=== PATIENT | female | born 1955 | race Caucasian/White ===

== ENCOUNTER 2017-07-04 10:09 | Outpatient (CLI) | payer MEDICARE ==
[2017-07-04 17:40] LABS: BILIRUBIN,URINE NEGATIVE (NEGATIVE); GLUCOSE, URINE (UA) NEGATIVE (NEGATIVE); KETONES,URINE (UA) NEGATIVE (NEGATIVE); LEUKOCYTE ESTERASE, URINE NEGATIVE (NEGATIVE); NITRITE,URINE NEGATIVE (NEGATIVE); OCCULT BLOOD,URINE NEGATIVE (NEGATIVE); PROTEIN,URINE 100 mg/dL (NEGATIVE); UROBILINOGEN,URINE 0.2 (NORMAL) E.U./dL (NORMAL)
[2017-07-04 17:41] LABS: BASOPHILS # (AUTO) 0.1 10^3/uL (0.0-0.1); BASOPHILS % (AUTO) 0.7 %; EOSINOPHILS # (AUTO) 0.2 10^3/uL (0.0-0.7); LYMPHOCYTES # (AUTO) 2.6 10^3/uL (1.5-3.5); LYMPHOCYTES % (AUTO) 29.5 %; MEAN CORPUSCULAR HEMOGLOBIN 31.4 pg (27.0-31.0); MEAN CORPUSCULAR HGB CONC 33.3 g/dL (32.0-36.0); MEAN CORPUSCULAR VOLUME 94.2 fL (81.0-99.0); MEAN PLATELET VOLUME 9.4 fL (7.9-10.8); MONOCYTES # (AUTO) 0.6 10^3/uL (0.0-1.0); MONOCYTES % (AUTO) 6.6 %; NEUTROPHILS # (AUTO) 5.4 10^3/uL (1.5-6.6); NEUTROPHILS % (AUTO) 61.2 %; PLT - PLATELET COUNT 284 10^3/uL (130-450); RED BLOOD COUNT 4.13 10^6/uL (4.20-5.40); RED CELL DISTRIBUTION WIDTH 13.9 % (12.0-15.0); WHITE BLOOD COUNT 8.9 x10^3/uL (4.8-10.8)
[2017-07-04 17:50] LABS: BACTERIA,URINE Few /HPF (None Seen); CLARITY,URINE CLEAR (CLEAR); RBC,URINE 0-5 /HPF (0-5); SQUAMOUS EPITHELIAL CELL,UR FEW Squamous (<= Few)
[2017-07-04 18:20] LABS: ALBUMIN 4.1 g/dL (3.2-5.5); ALBUMIN/GLOBULIN RATIO 1.1 (1.0-2.2); ALKALINE PHOSPHATASE 75 IU/L (42-121); ALT ALANINE AMINOTRANSFERASE 18 IU/L (10-60); AST ASPARTATE AMINOTRANSFERASE 26 IU/L (10-42); BILIRUBIN,TOTAL 0.3 mg/dL (0.2-1.0); BUN - BLOOD UREA NITROGEN 13 mg/dL (6-20); CALCIUM 9.3 mg/dL (8.5-10.3); CARBON DIOXIDE - CO2 24 mmol/L (21-32); CHLORIDE 99 mmol/L (101-111); CHOL/HDL RATIO 2.3 (<4.4); CHOLESTEROL 152 mg/dL; CREATININE 1.2 mg/dL (0.4-1.0); GFR - MDRD 46 (>89); GLUCOSE 90 mg/dL (70-100); HDL CHOLESTEROL 66 mg/dL; LDL CHOLESTEROL,CALCULATED 65 mg/dL; SODIUM 137 mmol/L (135-145); TOTAL PROTEIN 7.8 g/dL (6.7-8.2); VLDL CHOLESTEROL 21 mg/dL
== END 2017-07-04 10:10 | disposition home or self-care (01) ==
LOC: LAB.F 10:09
PROVIDERS: ATTEND Physician Assistant Medical
DX: Z00.00 Encounter for general adult medical examination without abnormal findings (principal); E55.9 Vitamin D deficiency, unspecified; N30.90 Cystitis, unspecified without hematuria
CPT/HCPCS: 36415; 80053; 80061; 81001; 82306; 83721; 84443; 85025; 87086

== ENCOUNTER 2018-09-11 10:43 | Outpatient (CLI) | payer MEDICARE, MEDICAID ==
[2018-09-11 17:55] LABS: BILIRUBIN,URINE NEGATIVE (NEGATIVE); GLUCOSE, URINE (UA) NEGATIVE (NEGATIVE); KETONES,URINE (UA) NEGATIVE (NEGATIVE); LEUKOCYTE ESTERASE, URINE NEGATIVE (NEGATIVE); NITRITE,URINE NEGATIVE (NEGATIVE); OCCULT BLOOD,URINE NEGATIVE (NEGATIVE); PROTEIN,URINE TRACE mg/dL (NEGATIVE); UROBILINOGEN,URINE 0.2 (NORMAL) E.U./dL (NORMAL)
[2018-09-11 18:07] LABS: BASOPHILS % (AUTO) 0.3 %; EOSINOPHILS # (AUTO) 0.2 10^3/uL (0.0-0.7); EOSINOPHILS % (AUTO) 2.1 %; HGB - HEMOGLOBIN 12.8 g/dL (12.0-16.0); LYMPHOCYTES # (AUTO) 2.5 10^3/uL (1.5-3.5); LYMPHOCYTES % (AUTO) 29.8 %; MEAN CORPUSCULAR HEMOGLOBIN 31.4 pg (27.0-31.0); MEAN CORPUSCULAR HGB CONC 32.5 g/dL (32.0-36.0); MEAN CORPUSCULAR VOLUME 96.7 fL (81.0-99.0); MEAN PLATELET VOLUME 9.4 fL (7.9-10.8); MONOCYTES # (AUTO) 0.5 10^3/uL (0.0-1.0); MONOCYTES % (AUTO) 6.5 %; NEUTROPHILS # (AUTO) 5.1 10^3/uL (1.5-6.6); NEUTROPHILS % (AUTO) 61.3 %; PLT - PLATELET COUNT 253 10^3/uL (130-450); RED BLOOD COUNT 4.09 10^6/uL (4.20-5.40); RED CELL DISTRIBUTION WIDTH 14.5 % (12.0-15.0); WHITE BLOOD COUNT 8.3 x10^3/uL (4.8-10.8)
[2018-09-11 18:08] LABS: CLARITY,URINE CLEAR (CLEAR)
[2018-09-11 18:14] LABS: ALBUMIN/GLOBULIN RATIO 1.2 (1.0-2.2); ALKALINE PHOSPHATASE 65 IU/L (42-121); ALT ALANINE AMINOTRANSFERASE 17 IU/L (10-60); AST ASPARTATE AMINOTRANSFERASE 22 IU/L (10-42); BILIRUBIN,TOTAL 0.5 mg/dL (0.2-1.0); BUN - BLOOD UREA NITROGEN 24 mg/dL (6-20); CALCIUM 9.2 mg/dL (8.5-10.3); CARBON DIOXIDE - CO2 26 mmol/L (21-32); CHLORIDE 102 mmol/L (101-111); CHOL/HDL RATIO 2.5 (<4.4); CHOLESTEROL 155 mg/dL; CREATININE 1.1 mg/dL (0.4-1.0); GFR - MDRD 50 (>89); GLUCOSE 87 mg/dL (70-100); HDL CHOLESTEROL 61 mg/dL; LDL CHOLESTEROL,CALCULATED 79 mg/dL; LDL/HDL RATIO 1.3 (<4.4); SODIUM 137 mmol/L (135-145); TOTAL PROTEIN 7.3 g/dL (6.7-8.2); VLDL CHOLESTEROL 15 mg/dL
== END 2018-09-11 10:44 | disposition home or self-care (01) ==
LOC: LAB.F 10:43
PROVIDERS: ATTEND Physician Assistant Medical
DX: I10 Essential (primary) hypertension (principal); E78.5 Hyperlipidemia, unspecified; R80.9 Proteinuria, unspecified
CPT/HCPCS: 36415; 80053; 80061; 81001; 81003; 83721; 85025; 87086

== ENCOUNTER 2018-10-01 14:06 | Outpatient (CLI) | payer MEDICARE, MEDICAID ==
--- NOTE | 2018-10-02 08:29 | DEXA Report ---
Reason: ASYMPTOMATIC MENOPAUSAL STATE Procedure Date: 10/01/2018 Accession Number: [id number] / [id number] Procedure: DEX - Dexa Spine and/or Hip CPT Code: FULL RESULT: EXAM: Dexa Spine and/or Hip DATE: 10/01/2018 2:42 PM CLINICAL HISTORY: ASYMPTOMATIC MENOPAUSAL STATE TECHNIQUE: Dual energy x-ray absorptiometry (DXA) was performed on a MYOS System. Regions measured are the AP Spine, femoral neck, and if needed forearm. COMPARISON: None. In accordance with the International Society for Clinical Densitometry (ISCD) guidelines, data from previous exams may be reanalyzed using current recommendations and techniques. This is done to allow a more accurate basis for comparison with the current study. FINDINGS: The data for the lumbar spine is as follows: BMD (g/cm/cm) T-SCORE Z-SCORE REGION L1 1.172 0.4 1.9 L2 1.263 0.5 2.0 L3 1.337 1.1 2.6 L4 1.388 1.6 3.1 TOTAL 1.303 1.0 2.5 NOTE: All evaluable vertebrae are used for classification The data for the hip is as follows: BMD (g/cm/cm) T-SCORE Z-SCORE REGION Neck 0.919 -0.9 0.6 TOTAL 0.985 -0.2 0.9 NOTE: The femoral neck or total proximal femur, whichever is lowest, is used for classification. IMPRESSION: THE WHO CLASSIFICATION BASED ON THE INTERNATIONAL REFERENCE STANDARD IS NORMAL. THE FRACTURE RISK IS NOT INCREASED. RECOMMENDATION: Patients with diagnosis of osteoporosis or osteopenia should have regular bone mineral density assessment. For those eligible for Medicare, routine testing is allowed once every 2 years. Testing frequency can be increased for patients who have rapidly progressing disease or for those who are receiving medical therapy to restore bone mass. COMMENT: World Health Organization (WHO) definitions for osteoporosis and osteopenia: NORMAL BMD: T-score at -1.0 or higher, fracture risk is low OSTEOPENIA BMD: T-score between -1.0 and -2.5, fracture risk is increased. OSTEOPOROSIS BMD: T-score at -2.5 or lower, fracture risk is high. National Osteoporosis Foundation recommends: 1. Obtain adequate dietary calcium (at least 1200 mg per day) and vitamin D (400-800 international units per day). 2. Participate, as appropriate, in regular weightbearing and muscle-strengthening exercise. 3. Avoid tobacco use and reduce alcohol and caffeine intake. 4. For more detailed information see the website at www.NOF.org.
== END 2018-10-01 14:07 | disposition home or self-care (01) ==
LOC: DI 14:06
PROVIDERS: ATTEND Registered Nurse
DX: Z78.0 Asymptomatic menopausal state (principal)
CPT/HCPCS: 77080

== ENCOUNTER 2019-12-12 08:09 | Outpatient (CLI) | payer MEDICARE, MEDICAID ==
[2019-12-12 15:21] LABS: BILIRUBIN,URINE NEGATIVE (NEGATIVE); GLUCOSE, URINE (UA) NEGATIVE (NEGATIVE); KETONES,URINE (UA) NEGATIVE (NEGATIVE); LEUKOCYTE ESTERASE, URINE TRACE (NEGATIVE); NITRITE,URINE NEGATIVE (NEGATIVE); OCCULT BLOOD,URINE NEGATIVE (NEGATIVE); PROTEIN,URINE NEGATIVE (NEGATIVE); UROBILINOGEN,URINE 0.2 (NORMAL) E.U./dL (NORMAL)
[2019-12-12 15:23] LABS: CLARITY,URINE CLEAR (CLEAR)
[2019-12-12 15:26] LABS: BASOPHILS % (AUTO) 0.5 %; EOSINOPHILS # (AUTO) 0.2 10^3/uL (0.0-0.7); EOSINOPHILS % (AUTO) 2.7 %; HGB - HEMOGLOBIN 11.4 g/dL (12.0-16.0); LYMPHOCYTES # (AUTO) 2.5 10^3/uL (1.5-3.5); LYMPHOCYTES % (AUTO) 32.5 %; MEAN CORPUSCULAR HEMOGLOBIN 30.6 pg (27.0-31.0); MEAN CORPUSCULAR HGB CONC 32.1 g/dL (32.0-36.0); MEAN CORPUSCULAR VOLUME 95.2 fL (81.0-99.0); MEAN PLATELET VOLUME 10.9 fL (7.9-10.8); MONOCYTES # (AUTO) 0.7 10^3/uL (0.0-1.0); MONOCYTES % (AUTO) 8.7 %; NEUTROPHILS # (AUTO) 4.3 10^3/uL (1.5-6.6); NEUTROPHILS % (AUTO) 55.2 %; PLT - PLATELET COUNT 264 10^3/uL (130-450); RED BLOOD COUNT 3.73 10^6/uL (4.20-5.40); RED CELL DISTRIBUTION WIDTH 13.2 % (12.0-15.0); WHITE BLOOD COUNT 7.7 x10^3/uL (4.8-10.8)
[2019-12-12 15:46] LABS: BACTERIA,URINE Few /HPF (None Seen); RBC,URINE 0-5 /HPF (0-5); SQUAMOUS EPITHELIAL CELL,UR MOD Squamous (<= Few)
[2019-12-12 15:50] LABS: ALBUMIN 3.9 g/dL (3.2-5.5); ALBUMIN/GLOBULIN RATIO 1.3 (1.0-2.2); ALKALINE PHOSPHATASE 59 IU/L (42-121); ALT ALANINE AMINOTRANSFERASE 14 IU/L (10-60); AST ASPARTATE AMINOTRANSFERASE 19 IU/L (10-42); BILIRUBIN,TOTAL 0.8 mg/dL (0.2-1.0); BUN - BLOOD UREA NITROGEN 17 mg/dL (6-20); CALCIUM 8.9 mg/dL (8.5-10.3); CARBON DIOXIDE - CO2 27 mmol/L (21-32); CHLORIDE 100 mmol/L (101-111); CHOL/HDL RATIO 2.7 (<4.4); CHOLESTEROL 147 mg/dL; CREATININE 1.4 mg/dL (0.4-1.0); GLUCOSE 84 mg/dL (70-100); HDL CHOLESTEROL 55 mg/dL; LDL CHOLESTEROL,CALCULATED 63 mg/dL; LDL/HDL RATIO 1.1 (<4.4); SODIUM 135 mmol/L (135-145); TOTAL PROTEIN 6.9 g/dL (6.7-8.2); VLDL CHOLESTEROL 29 mg/dL
== END 2019-12-12 08:10 | disposition home or self-care (01) ==
LOC: LAB.S 08:09
PROVIDERS: ATTEND Registered Nurse
DX: F17.200 Nicotine dependence, unspecified, uncomplicated (principal); I10 Essential (primary) hypertension; E78.5 Hyperlipidemia, unspecified
CPT/HCPCS: 36415; 80053; 80061; 81001; 83721; 84443; 85025; 87086

== ENCOUNTER 2020-01-05 17:35 | Outpatient (CLI) | payer MEDICARE, MEDICAID | END 2020-01-05 23:59 | disposition home or self-care (01) | LOC: LAB.S 17:35 | PROVIDERS: ATTEND Physician Assistant | DX: R10.9 Unspecified abdominal pain (principal); Z87.440 Personal history of urinary (tract) infections | CPT/HCPCS: 87086 ==

== ENCOUNTER 2020-01-29 08:48 | Outpatient (CLI) | payer MEDICARE, MEDICAID ==
[2020-01-29 15:49] LABS: CREATININE,URINE 52.5 mg/dL; PROTEIN/CREATININE RATIO,URINE 0.6 (<=0.2)
== END 2020-01-29 08:49 | disposition home or self-care (01) ==
LOC: LAB.S 08:48
PROVIDERS: ATTEND Internal Medicine Nephrology
DX: D70.9 Neutropenia, unspecified (principal); D63.1 Anemia in chronic kidney disease; R80.9 Proteinuria, unspecified
CPT/HCPCS: 36415; 80053; 82570; 84156; 85025

== ENCOUNTER 2020-01-30 15:51 | Outpatient (CLI) | payer MEDICARE, MEDICAID ==
[2020-01-30 19:48] LABS: HGB - HEMOGLOBIN 11.3 g/dL (12.0-16.0); MEAN CORPUSCULAR HEMOGLOBIN 30.1 pg (27.0-31.0); MEAN CORPUSCULAR HGB CONC 31.5 g/dL (32.0-36.0); MEAN CORPUSCULAR VOLUME 95.7 fL (81.0-99.0); MEAN PLATELET VOLUME 11.3 fL (7.9-10.8); RED BLOOD COUNT 3.75 10^6/uL (4.20-5.40)
== END 2020-01-30 15:52 | disposition home or self-care (01) ==
LOC: LAB.S 15:51
PROVIDERS: ATTEND Internal Medicine Nephrology
DX: D70.9 Neutropenia, unspecified (principal); D63.1 Anemia in chronic kidney disease; R80.9 Proteinuria, unspecified
CPT/HCPCS: 85027

== ENCOUNTER 2020-07-23 14:50 | Outpatient (CLI) | payer MEDICARE, MEDICAID | END 2020-07-23 14:51 | disposition short-term general hospital (02) | LOC: EMS 14:50 | DX: R07.9 Chest pain, unspecified (principal); R06.02 Shortness of breath; R11.2 Nausea with vomiting, unspecified | CPT/HCPCS: A0425; A0427 ==

== ENCOUNTER 2020-12-16 08:00 | Outpatient (CLI) | payer MEDICAID, MEDICARE ==
[2020-12-16 20:01] LABS: BILIRUBIN,URINE NEGATIVE (NEGATIVE); GLUCOSE, URINE (UA) NEGATIVE (NEGATIVE); KETONES,URINE (UA) TRACE mg/dL (NEGATIVE); LEUKOCYTE ESTERASE, URINE NEGATIVE (NEGATIVE); NITRITE,URINE NEGATIVE (NEGATIVE); OCCULT BLOOD,URINE SMALL (NEGATIVE); PH,URINE 6.5 PH (5.0-7.5); PROTEIN,URINE >=300 mg/dL (NEGATIVE); UROBILINOGEN,URINE 0.2 (NORMAL) E.U./dL (NORMAL)
[2020-12-16 20:09] LABS: BACTERIA,URINE Rare /HPF (None Seen); CLARITY,URINE CLEAR (CLEAR); RBC,URINE 0-5 /HPF (0-5); SQUAMOUS EPITHELIAL CELL,UR MOD Squamous (<= Few); WBC,URINE 0-3 /HPF (0-5)
== END 2020-12-16 23:59 | disposition home or self-care (01) ==
LOC: LAB.S 08:00
PROVIDERS: ATTEND Emergency Medicine
DX: R30.0 Dysuria (principal)
CPT/HCPCS: 81001; 87086

== ENCOUNTER 2021-02-25 19:05 | Outpatient (CLI) | payer MEDICARE | END 2021-02-25 19:06 | disposition short-term general hospital (02) | LOC: EMS 19:05 | DX: I48.91 Unspecified atrial fibrillation (principal); R79.81 Abnormal blood-gas level | CPT/HCPCS: A0425; A0427 ==

== ENCOUNTER 2021-05-08 09:20 | Outpatient (CLI) | payer MEDICARE | END 2021-05-08 09:21 | disposition short-term general hospital (02) | LOC: EMS 09:20 | DX: R07.89 Other chest pain (principal); R06.02 Shortness of breath; M79.602 Pain in left arm | CPT/HCPCS: A0425; A0427 ==

== ENCOUNTER 2021-10-12 10:33 | Outpatient (CLI) | payer MEDICARE | END 2021-10-12 10:34 | disposition home or self-care (01) | LOC: LAB.S 10:33 | PROVIDERS: ATTEND Ophthalmology | DX: Z01.812 Encounter for preprocedural laboratory examination (principal); H25.812 Combined forms of age-related cataract, left eye; Z20.822 Contact with and (suspected) exposure to COVID-19 | CPT/HCPCS: 81025 ==

== ENCOUNTER 2021-10-13 08:20 | Day surgery (SDC) | payer MEDICARE ==
[~2021-10-13 08:20] MED LIST: BRIMONIDINE 0.2% OPHTH DROPS 5 ML ONE; BSS/LIDOCAINE/EPINEPHRINE 1 ML VIAL ONE; CYCLOPENTOLATE 1% OPHTH DROPS 2 ML ONE; EPINEPHrine 1 MG/ML AMP ONE; KETOROLAC 0.45% OPHTH DROPS ONE; PHENYLEPHRINE 2.5% OPHTH 2 ML DROPS ONE; PROPARACAINE 0.5% OPHTH DROPS 15 ML ONE; TIMOLOL 0.5% OPHTH DROPS ONE; TRIAMCIN/MOXIFLOX OPHTHALMIC 0.6 ML VIAL IO ONE
--- NOTE | 2021-10-13 08:53 | ANESTHESIA ---
Pre-Anesthesia VS, & Labs - Diagnosis left senile cataract - Procedure left cataract extraction with intraocular lens implant Vital Signs: Temp Pulse Resp BP Pulse Ox 36.6 C 96 16 100 10/13/21 08:30 10/13/21 08:30 10/13/21 08:30 10/13/21 08:30 Height: 5 ft 3.5 in Weight (kg): 63.5 kg Body Mass Index: 24.4 BMI Classification: Healthy weight - NPO >8 hours - Is Patient ?: No Home Medications and Allergies Home Medications: Ambulatory Orders Amiodarone [Pacerone] 200 mg PO DAILY 10/06/21 Cholecalciferol (Vitamin D3) [Vitamin D3] 1,000 unit PO DAILY 10/06/21 Cyanocobalamin (Vitamin B-12) [Vitamin B-12] 1,000 mcg PO DAILY 10/06/21 Famotidine [Pepcid] 20 mg PO BID 10/06/21 Ferrous Gluconate 240 mg PO DAILY 10/06/21 Rosuvastatin Calcium [Crestor] 40 mg PO DAILY 10/06/21 Amlodipine Besylate 7.5 mg PO DAILY 05/03/15 Aspirin 81 mg PO DAILY 05/03/15 Clopidogrel [Plavix] 75 mg PO DAILY 05/03/15 Metoprolol Succinate 50 mg PO DAILY 05/03/15 Amiodarone [Pacerone] 200 mg PO DAILY 10/06/21 Cholecalciferol (Vitamin D3) [Vitamin D3] 1,000 unit PO DAILY 10/06/21 Cyanocobalamin (Vitamin B-12) [Vitamin B-12] 1,000 mcg PO DAILY 10/06/21 Famotidine [Pepcid] 20 mg PO BID 10/06/21 Ferrous Gluconate 240 mg PO DAILY 10/06/21 Rosuvastatin Calcium [Crestor] 40 mg PO DAILY 10/06/21 Allergies/Adverse Reactions: Allergies Allergy/AdvReac Type Severity Reaction Status Date / Time atropine Allergy Unknown Verified 05/03/15 11:44 clindamycin Allergy Unknown Verified 05/03/15 11:44 codeine Allergy Rash Verified 10/06/21 15:37 diphenoxylate Allergy Unknown Verified 05/03/15 11:44 nitrofurantoin Allergy Unknown Verified 05/03/15 11:44 Penicillins Allergy Unknown Verified 12/07/15 11:44 propoxyphene Allergy Unknown Verified 05/03/15 11:44 Sulfa (Sulfonamide Allergy Unknown Verified 05/03/15 11:44 Antibiotics) vancomycin Allergy Unknown Verified 05/03/15 11:44 Anes History & Medical History - Anesthetic History Anesthesia Complications: reports: No previous complications - Medical History Cardiovascular: reports: Hypertension, High cholesterol, Atrial fibrillation Pulmonary: reports: None Gastrointestinal: reports: GERD Urinary: reports: Chronic bladder infection, Other Musculoskeletal: reports: None Endocrine/Autoimmune: reports: None Skin: reports: None Smoking Status: Current every day smoker - Surgical History Cardiothoracic: Gynecologic: reports: Hysterectomy Orthopedic: reports: Carpal Tunnel surgery, Other Exam General: Alert, Oriented x3 Dental: WNL Neck Mobility: Normal Mallampati classification: II Thyromental Distance: greater than 6 cm Respiratory: Lungs clear Cardiovascular: Regular rate Plan Anesthesia Type: MAC Consent for Procedure(s) Verified and Reviewed: Yes Code Status: Attempt Resuscitation ASA classification: 3-Severe systemic disease Is this case an emergency?: No
[2021-10-13] MEDS ORDERED: MIDAZOLAM 2 MG/2 ML VIAL ONE (09:01)
[2021-10-13] MEDS ORDERED: LACTATED RINGERS 1,000 ML IV ONE ×2 (09:15→10:15)
[2021-10-13] MEDS ORDERED: EPINEPHrine 1 MG/ML AMP IR ONE (10:04)
[2021-10-13] MEDS ORDERED: BRIMONIDINE 0.2% OPHTH DROPS 5 ML OPTH ONE (10:04)
[2021-10-13] MEDS ORDERED: BSS/LIDOCAINE/EPINEPHRINE 1 ML SYRINGE IO ONE (10:05)
[2021-10-13] MEDS ORDERED: TRIAMCIN/MOXIFLOX OPHTHALMIC 0.6 ML VIAL IO ONE (10:05)
[2021-10-13] MEDS ORDERED: TIMOLOL 0.5% OPHTH DROPS OPTH ONE (10:05)
[2021-10-13] MEDS ORDERED: VANCOMYCIN OPHTHALMI 8MG/0.8ML 8 MG/0.8 ML SYRINGE IO ONE (10:06)
[2021-10-13] MEDS ORDERED: PROPARACAINE 0.5% OPHTH DROPS 15 ML EACHEYE ONE (10:06)
[2021-10-13] MEDS ORDERED: fentaNYL 100 MCG/2 ML VIAL ONE (10:08)
--- NOTE | 2021-10-13 10:21 | OPERATIVE REPORT ---
Operative Report - Other Other Information/Narrative: Date of Surgery: 10/13/21 Preop Dx: Visually significant cataract left eye. This was the first cataract surgery. Postop Dx: Same Procedure: Phacoemulsification with posterior chamber intraocular lens implant left eye Surgeon: Dr. Dawit Enrique Anesthesia: Monitored anesthesia care Complications: None Operative Indications: This is a 66-year-old F with progressive vision loss in the left eye due to 2+ nuclear sclerotic, 1+ cortical, and 1+ posterior subcapsular cataract. Best corrected visual acuity was 20/30 with glare to 20/300 vision in the left eye. Indications for surgery were: - Overall decrease in vision - Difficulty seeing words on a computer screen - Difficulty reading - Difficulty seeing words, closed captions, or game scores on TV - Difficulty seeing street signs - Difficulty driving in low light or at night - Difficulty driving at night because of headlights from other vehicles - Difficulty with glare or bright lights in any situation The patient was consented at length concerning the risks and benefits of cataract surgery after which the patient expressed a desire to proceed with surgery. Operative Procedure: The patient was taken into OR#3 and placed under monitored anesthesia care. A surgical time-out was conducted confirming correct patient, correct procedure, and correct surgical site. The patient was given topical anesthesia and then prepped and draped in the usual sterile fashion. The eye was entered at the 6 and 3 oclock positions. Intracameral Shugarcaine was injected into the anterior chamber followed by a dispersive viscoelastic. A continuous-tear curvilinear capsulorhexis was performed. The nucleus was hydrod issected and phacoemulsified. The cortex was evacuated using automated infusion and aspiration. A cohesive viscoelastic was injected into the capsular bag and a 16.0 diopter intraocular lens was inserted into the bag. Infusion and aspiration were used to evacuate the viscoelastic materials from the eye. The wounds were hydrated and the eye inflated to physiologic pressure using balanced salt solution. Approximately 0.25ml of a mixture of triamcinolone and moxifloxacin was injected trans-sclerally into the vitreous in the inferotemporal quadrant using a 30 gauge cannula. An additional 0.55ml of a mixture of triamcinolone, moxifloxacin, and vancomycin was injected subconjunctivally in the superior quadrant for infection and inflammation prophylaxis. Wound integrity was checked with Weck-Alisa sponges. The patient was taken from the operating room in good condition and given post-op instructions.
--- NOTE | 2021-10-13 10:38 | ANESTHESIA POST OP EVALUATION ---
Anesthesia Post Eval - Post Anesthesia Eval Vitals: Last Vital Signs Temp 36.3 C L 10/13/21 10:37 Pulse 62 10/13/21 10:37 Resp 13 10/13/21 10:37 BP 116/61 10/13/21 10:37 Pulse Ox 97 10/13/21 10:37 CV Function Including HR & BP: Stable Pain Control: Satisfactory Nausea & Vomiting: Negative Mental Status: Baseline Respiratory Status: Airway Patent Hydration Status: Satisfactory Anesthesia Complications: None
[2021-10-13 10:57] VITALS: BP 115/48
== END 2021-10-13 08:21 | disposition home or self-care (01) ==
LOC: SDS 08:20
PROVIDERS: ATTEND Ophthalmology
DX: H25.812 Combined forms of age-related cataract, left eye (principal); I48.91 Unspecified atrial fibrillation; F17.200 Nicotine dependence, unspecified, uncomplicated
CPT/HCPCS: 66984; A9270; J3490; J7120; V2787

== ENCOUNTER 2021-11-09 13:53 | Outpatient (CLI) | payer MEDICARE, MEDICAID | END 2021-11-09 13:54 | disposition home or self-care (01) | LOC: LAB.S 13:53 | PROVIDERS: ATTEND Ophthalmology | DX: Z01.812 Encounter for preprocedural laboratory examination (principal); H59.022 Cataract (lens) fragments in eye following cataract surgery, left eye; Z20.822 Contact with and (suspected) exposure to COVID-19 | CPT/HCPCS: 81025 ==

== ENCOUNTER 2021-11-17 07:29 | Day surgery (SDC) | payer MEDICARE, MEDICAID ==
[~2021-11-17 07:29] MED LIST changes: -BRIMONIDINE 0.2% OPHTH DROPS 5 ML ONE; -BSS/LIDOCAINE/EPINEPHRINE 1 ML VIAL ONE; -EPINEPHrine 1 MG/ML AMP ONE; -TIMOLOL 0.5% OPHTH DROPS ONE; -TRIAMCIN/MOXIFLOX OPHTHALMIC 0.6 ML VIAL IO ONE
[2021-11-17] MEDS ORDERED: LACTATED RINGERS 1,000 ML IV ONE (07:35)
--- NOTE | 2021-11-17 08:34 | ANESTHESIA ---
Pre-Anesthesia VS, & Labs - Diagnosis right eye senile combined cataract - Procedure right eye cataract extraction with IOL implant Vital Signs: Temp Pulse Resp BP Pulse Ox 36.8 C 58 L 16 151/76 H 98 11/17/21 07:39 11/17/21 07:39 11/17/21 07:39 11/17/21 07:39 11/17/21 07:39 Height: 5 ft 3 in Weight (kg): 62.7 kg Body Mass Index: 24.5 BMI Classification: Healthy weight - NPO >8 hours - Is Patient ?: No Home Medications and Allergies Amlodipine Besylate 7.5 mg PO DAILY 05/03/15 Aspirin 81 mg PO DAILY 05/03/15 Clopidogrel [Plavix] 75 mg PO DAILY 05/03/15 Metoprolol Succinate 50 mg PO DAILY 05/03/15 Amiodarone [Pacerone] 200 mg PO DAILY 10/06/21 Cholecalciferol (Vitamin D3) [Vitamin D3] 1,000 unit PO DAILY 10/06/21 Cyanocobalamin (Vitamin B-12) [Vitamin B-12] 1,000 mcg PO DAILY 10/06/21 Famotidine [Pepcid] 20 mg PO BID 10/06/21 Rosuvastatin Calcium [Crestor] 40 mg PO DAILY 10/06/21 Allergies/Adverse Reactions: Allergies Allergy/AdvReac Type Severity Reaction Status Date / Time atropine Allergy Unknown Verified 11/10/21 09:22 clindamycin Allergy Unknown Verified 11/10/21 09:22 codeine Allergy Rash Verified 11/10/21 09:22 diphenoxylate Allergy Unknown Verified 11/10/21 09:22 nitrofurantoin Allergy Unknown Verified 11/10/21 09:22 Penicillins Allergy Unknown Verified 11/10/21 09:22 propoxyphene Allergy Unknown Verified 11/10/21 09:22 Sulfa (Sulfonamide Allergy Unknown Verified 11/10/21 09:22 Antibiotics) vancomycin Allergy Unknown Verified 11/10/21 09:22 Anes History & Medical History - Anesthetic History Anesthesia Complications: reports: No previous complications - Medical History Cardiovascular: reports: Hypertension, High cholesterol, Atrial fibrillation Pulmonary: reports: None Gastrointestinal: reports: GERD Urinary: reports: Chronic bladder infection, Other Neuro: reports: None Musculoskeletal: reports: None Endocrine/Autoimmune: reports: None Blood Disorders: reports: None Skin: reports: None Smoking Status: Current every day smoker Psychosocial: reports: No issues indicated History of Cancer?: No - Surgical History Eyes Ears Nose Throat (EENT): reports: Cataracts Cardiothoracic: Gynecologic: reports: Hysterectomy Orthopedic: reports: Carpal Tunnel surgery, Other Exam General: Alert, Oriented x3, Cooperative, No acute distress Dental: Poor dentition Mouth Openin Fingerbreadth Neck Mobility: Normal Mallampati classification: II Thyromental Distance: 4-6 cm Mental/Cognitive Status: Alert/Oriented X3, Normal for patient Plan Anesthesia Type: MAC Consent for Procedure(s) Verified and Reviewed: Yes Code Status: Attempt Resuscitation ASA classification: 2-Mild systemic disease Is this case an emergency?: No
[2021-11-17] MEDS ORDERED: MIDAZOLAM 2 MG/2 ML VIAL ONE (09:05)
[2021-11-17] MEDS ORDERED: fentaNYL 100 MCG/2 ML VIAL ONE (09:05)
[2021-11-17] MEDS ORDERED: BRIMONIDINE 0.2% OPHTH DROPS 5 ML OPTH ONE (09:28)
[2021-11-17] MEDS ORDERED: EPINEPHrine 1 MG/ML AMP IR ONE (09:28)
[2021-11-17] MEDS ORDERED: TIMOLOL 0.5% OPHTH DROPS OPTH ONE (09:28)
[2021-11-17] MEDS ORDERED: PROPARACAINE 0.5% OPHTH DROPS 15 ML EACHEYE ONE (09:29)
[2021-11-17] MEDS ORDERED: BSS/LIDOCAINE/EPINEPHRINE 1 ML SYRINGE IO ONE (09:29)
[2021-11-17] MEDS ORDERED: TRIAMCIN/MOXIFLOX OPHTHALMIC 0.6 ML VIAL IO ONE (09:29)
[2021-11-17] MEDS ORDERED: LACTATED RINGERS 700 ML IV ONE (09:40)
--- NOTE | 2021-11-17 09:50 | OPERATIVE REPORT ---
Operative Report - Other Other Information/Narrative: Date of Surgery: 11/17/21 Preop Dx: Visually significant cataract right eye. Cataract surgery was performed in the left eye on . Postop Dx: Same Procedure: Phacoemulsification with posterior chamber intraocular lens implant right eye Surgeon: Dr. Dawit Enrique Anesthesia: Monitored anesthesia care Complications: None Operative Indications: This is a 66-year-old F with progressive vision loss in the right eye due to 2+ nuclear sclerotic, 2+ cortical, 2+ pseudoexfoliatve, and trace posterior subcapsular cataract. Best corrected visual acuity was 20/30 with glare to 20/50 vision in the right eye. Indications for surgery were: - Overall decrease in vision - Difficulty seeing words on a computer screen - Difficulty reading - Difficulty seeing words, closed captions, or game scores on TV - Difficulty seeing street signs - Difficulty driving in low light or at night - Difficulty driving at night because of headlights from other vehicles - Difficulty with glare or bright lights in any situation The patient was consented at length concerning the risks and benefits of cataract surgery after which the patient expressed a desire to proceed with surgery. Operative Procedure: The patient was taken into OR#3 and placed under monitored anesthesia care. A surgical time-out was conducted confirming correct patient, correct procedure, and correct surgical site. The patient was given topical anesthesia and then prepped and draped in the usual sterile fashion. The eye was entered at the 6 and 3 oclock positions. Intracameral Shugarcaine was injected into the anterior chamber followed by a dispersive viscoelastic. A continuous-tear curvilinear capsulorhexis was performed. The nucleus was hydrodissected and phacoemulsified. The cortex was evacuated using automated infusion and aspiration. A cohesive viscoelastic was injected into the capsular bag and a 16.5 diopter intraocular lens was inserted into the bag. Infusion and aspiration were used to evacuate the viscoelastic materials from the eye. The wounds were hydrated and the eye inflated to physiologic pressure using balanced salt solution. Approximately 0.25ml of a mixture of triamcinolone and moxifloxacin was injected trans-sclerally into the vitreous in the inferotemporal quadrant using a 30 gauge cannula. An additional 0.55ml of a mixture of triamcinolone and moxifloxacin was injected subconjunctivally in the superior quadrant for infection and inflammation prophylaxis. Wound integrity was checked with Weck-Alisa sponges. The patient was taken from the operating room in good condition and given post-op instructions.
[2021-11-17 10:09] VITALS: BP 106/44
--- NOTE | 2021-11-17 14:54 | ANESTHESIA POST OP EVALUATION ---
Anesthesia Post Eval - Post Anesthesia Eval Vitals: Last Vital Signs Temp 36.8 C 11/17/21 10:08 Pulse 54 L 11/17/21 10:08 Resp 16 11/17/21 10:08 BP 106/44 L 11/17/21 10:08 Pulse Ox 98 11/17/21 10:08 CV Function Including HR & BP: Stable Pain Control: Satisfactory Nausea & Vomiting: Negative Mental Status: Baseline Respiratory Status: Airway Patent Hydration Status: Satisfactory Anesthesia Complications: None
== END 2021-11-17 07:30 | disposition home or self-care (01) ==
LOC: SDS 07:29
PROVIDERS: ATTEND Ophthalmology
DX: H25.811 Combined forms of age-related cataract, right eye (principal); I48.91 Unspecified atrial fibrillation; Z98.42 Cataract extraction status, left eye; F17.200 Nicotine dependence, unspecified, uncomplicated
CPT/HCPCS: 66984; A9270; J3490; J7120

== ENCOUNTER 2022-07-05 13:36 | Outpatient (CLI) | payer MEDICARE, MEDICAID ==
[2022-07-05 19:43] LABS: MEAN CORPUSCULAR HEMOGLOBIN 25.8 pg (27.0-31.0); MEAN CORPUSCULAR HGB CONC 29.4 g/dL (32.0-36.0); MEAN CORPUSCULAR VOLUME 87.6 fL (81.0-99.0); MEAN PLATELET VOLUME 11.6 fL (7.9-10.8); RED BLOOD COUNT 3.88 10^6/uL (4.20-5.40); RED CELL DISTRIBUTION WIDTH 17.2 % (12.0-15.0); WHITE BLOOD COUNT 9.8 x10^3/uL (4.8-10.8)
[2022-07-05 20:00] LABS: ALBUMIN 3.9 g/dL (3.2-5.5); ALBUMIN/GLOBULIN RATIO 1.1 (1.0-2.2); BILIRUBIN,TOTAL 0.6 mg/dL (0.2-1.0); CALCIUM 10.1 mg/dL (8.5-10.3); CREATININE 2.2 mg/dL (0.4-1.0); POTASSIUM 3.6 mmol/L (3.5-5.0); TOTAL PROTEIN 7.4 g/dL (6.7-8.2)
[2022-07-05 20:30] LABS: THYROID STIMULATING HORMONE 1.43 uIU/mL (0.34-5.60)
== END 2022-07-05 13:37 | disposition home or self-care (01) ==
LOC: LAB.S 13:36
DX: Z79.899 Other long term (current) drug therapy (principal)
CPT/HCPCS: 36415; 80053; 84443; 85027

== ENCOUNTER 2023-04-06 04:50 | Outpatient (CLI) | payer MEDICARE, MEDICAID | END 2023-04-06 23:59 | disposition short-term general hospital (02) | LOC: EMS 04:50 | DX: R06.02 Shortness of breath (principal); R07.89 Other chest pain; R53.1 Weakness | CPT/HCPCS: A0425; A0427 ==

== ENCOUNTER 2024-06-06 18:16 | Inpatient (IN) ==
[2024-06-06 18:31] LABS: BASOPHILS # (AUTO) 0.1 10^3/uL (0.0-0.1); BASOPHILS % (AUTO) 0.3 %; EOSINOPHILS # (AUTO) 0.2 10^3/uL (0.0-0.7); EOSINOPHILS % (AUTO) 1.1 %; HCT - HEMATOCRIT 37.4 % (37.0-47.0); HGB - HEMOGLOBIN 11.7 g/dL (12.0-16.0); LYMPHOCYTES # (AUTO) 2.1 10^3/uL (1.5-3.5); LYMPHOCYTES % (AUTO) 13.1 %; MEAN CORPUSCULAR HEMOGLOBIN 30.3 pg (27.0-31.0); MEAN CORPUSCULAR HGB CONC 31.3 g/dL (32.0-36.0); MEAN CORPUSCULAR VOLUME 96.9 fL (81.0-99.0); MEAN PLATELET VOLUME 11.1 fL (7.9-10.8); MONOCYTES # (AUTO) 0.9 10^3/uL (0.0-1.0); MONOCYTES % (AUTO) 5.8 %; NEUTROPHILS # (AUTO) 12.7 10^3/uL (1.5-6.6); NEUTROPHILS % (AUTO) 79.3 %; PLT - PLATELET COUNT 281 10^3/uL (130-450); RED BLOOD COUNT 3.86 10^6/uL (4.20-5.40); RED CELL DISTRIBUTION WIDTH 14.6 % (12.0-15.0); WHITE BLOOD COUNT 16.1 x10^3/uL (4.8-10.8)
[2024-06-06] MEDS: FUROSEMIDE 40 MG/4 ML VIAL IVP STA (18:41)
--- NOTE | 2024-06-06 18:42 | ED Physician Documentation ---
History of Present Illness Stated complaint Stated Complaint: SOA Chief complaint Chief Complaint: Resp History obtained from History obtained from: Patient and EMS History of Present Illness Pain level max: 0 Pain level now: 0 Additonal information Additional information: Patient is a 69-year-old female who presents to the emergency department complaining of increasing difficulty breathing throughout the day. States she has a history of congestive heart failure as well as history of a stroke. States she does not have any history of COPD, emphysema or other structural lung disease. Has not had any rhinorrhea, cough or congestion. She was given an inch of Nitropaste and placed on CPAP with EMS. Breathing significantly improved upon arrival to the emergency department. Meds/Allgy Home Medications Ambulatory Orders Medication Instructions Recorded Confirmed amlodipine 5 mg tablet 7.5 mg PO DAILY 05/03/15 11/17/21 aspirin 325 mg tablet 81 mg PO DAILY 05/03/15 11/17/21 clopidogrel 75 mg tablet 75 mg PO DAILY 05/03/15 11/17/21 metoprolol succinate 50 mg 50 mg PO DAILY 05/03/15 11/17/21 tablet,extended release 24 hr amiodarone 200 mg tablet 200 mg PO DAILY 10/06/21 11/17/21 cholecalciferol (vitamin D3) 25 1,000 unit PO DAILY 10/06/21 11/17/21 mcg (1,000 unit) capsule cyanocobalamin (vitamin B-12) 1,000 mcg PO DAILY 10/06/21 11/17/21 1,000 mcg capsule famotidine 20 mg tablet 20 mg PO BID 10/06/21 11/17/21 rosuvastatin 40 mg tablet (Crestor) 40 mg PO DAILY 10/06/21 11/17/21 Allergies Allergies Allergy/AdvReac Type Severity Reaction Status Date / Time atropine Allergy Unknown Verified 06/06/24 18:29 clindamycin Allergy Unknown Verified 06/06/24 18:29 codeine Allergy Rash Verified 06/06/24 18:29 diphenoxylate Allergy Unknown Verified 06/06/24 18:29 nitrofurantoin Allergy Unknown Verified 06/06/24 18:29 Penicillins Allergy Unknown Verified 06/06/24 18:29 propoxyphene Allergy Unknown Verified 06/06/24 18:29 Sulfa (Sulfonamide Allergy Unknown Verified 06/06/24 18:29 Antibiotics) vancomycin Allergy Unknown Verified 06/06/24 18:29 mushrooms Allergy Unknown Uncoded 06/06/24 18:29 [facility] Social History Social History Smoking Status: Current every day smoker How many cigarettes a day do you smoke? (20 cigarettes=1 Pk): 4 Patient requests smoking cessation consult: No Initiate information on smoking cessation: No Relationship: Do you feel safe in your home environment?: Yes Suffered physical, verbal, emotional, or financial abuse?: No History of Abuse: No Frequency: Occasional Exam Constitutional normal general appearance Mild increased work of breathing, speaking in 5-7 word sentences HENMT oropharynx normal moist mucous membranes Eyes PERRL Neck/C-Spine visual inspection normal Respiratory Diminished breath sounds bilaterally Cardiovascular normal heart rate noted and regular rhythm noted Gastrointestinal abdomen normal to inspection, abdomen soft to palpation, nontender to palpation and nondistended Genitourinary no CVA tenderness Extremities no edema Neurology speech normal Psychiatry mental status grossly normal and oriented x3 Skin skin color normal Results Vitals Vitals: Vital Signs - 24 hr 06/06/24 18:24 Temperature 35.7 C L Temperature Source Temporal Artery Scan Pulse Rate 80 Respiratory Rate 26 H Blood Pressure 178/103 H O2 Saturation 93 O2 Source Room air Pain Intensity 3 Oxygen O2 Source Room air Labs Labs: Laboratory Tests 06/06/24 18:24 WBC 16.1 H RBC 3.86 L Hgb 11.7 L Hct 37.4 MCV 96.9 MCH 30.3 MCHC 31.3 L RDW 14.6 Plt Count 281 MPV 11.1 H Neut # (Auto) 12.7 H Lymph # (Auto) 2.1 Mccreary # (Auto) 0.9 Eos # (Auto) 0.2 Baso # (Auto) 0.1 Absolute Nucleated RBC 0.00 Nucleated RBC % 0.0 Sodium 138 Potassium 5.0 H Chloride 102 Carbon Dioxide 28 Anion Gap 8.0 BUN 17 Creatinine 1.6 H Estimated GFR (MDRD) 32 L Glucose 122 H Calcium 9.9 Total Bilirubin 0.6 AST 30 ALT 16 Alkaline Phosphatase 69 B-Natriuretic Peptide 943 H Total Protein 7.7 Albumin 4.6 Globulin 3.1 Albumin/Globulin Ratio 1.5 Lipase 26 PD Medical Decision Making ED course Complexity details: reviewed results, considered differential and d/w patient ED course: 69-year-old female presents with what appears to be A CHF exacerbation. She had been given nitroglycerin topically by EMS also placed on BiPAP. BiPAP was removed and she was weaned down to oxygen 6 L nasal cannula. Given Lasix. Chest x-ray ordered. Labs ordered. Troponin is essentially normal at 17. BNP is pending at the time of signout. Chest x-ray shows potential pneumonia, patient will need to be reassessed after initial treatment and labs. Patient signed out to Dr. Bryson For repeat evaluation and final disposition. This document was made in part using voice recognition software. While efforts are made to proofread this document, sound alike and grammatical errors may occur. Discharge Plan Discharge Clinical Impression: Acute respiratory distress Prescriptions: No Action aspirin 325 MG tablet 81 mg PO DAILY metoprolol succinate 50 MG tablet extended release 24 hr 50 mg PO DAILY Patient Comments: BID clopidogrel 75 MG tablet 75 mg PO DAILY amlodipine 5 MG tablet 7.5 mg PO DAILY cyanocobalamin (vitamin B-12) 1,000 MCG capsule 1,000 mcg PO DAILY amiodarone 200 MG tablet 200 mg PO DAILY famotidine 20 MG tablet 20 mg PO BID cholecalciferol (vitamin D3) 25 MCG capsule 1,000 unit PO DAILY rosuvastatin [Crestor] 40 MG tablet 40 mg PO DAILY Print Language: [place]an Stand Alone Forms: PCP List
[2024-06-06 18:50] LABS: ALBUMIN 4.6 g/dL (3.2-5.5); ALBUMIN/GLOBULIN RATIO 1.5 (1.0-2.2); BILIRUBIN,TOTAL 0.6 mg/dL (0.2-1.0); CALCIUM 9.9 mg/dL (8.5-10.3); CREATININE 1.6 mg/dL (0.6-1.3); TOTAL PROTEIN 7.7 g/dL (6.4-8.9)
--- NOTE | 2024-06-06 19:01 | XRAY Report ---
PROCEDURE: XR Chest 1V INDICATIONS: dyspnea TECHNIQUE: One view of the chest was acquired. COMPARISON: None. FINDINGS: Surgical changes and devices: None. Lungs and pleura: Lungs are hyperexpanded suggestive COPD. There is mild increased appearance of opa city within the right base. Mediastinum: Mediastinal contours appear normal. Heart size is normal. Bones and chest wall: No suspicious bony lesions. Overlying soft tissues appear unremarkable. IMPRESSION: Mild increased right basilar opacity. This could represent dependent change versus developing pneumon ia. Reviewed by: Jo Gilbert MD on 06/06/2024 7:00 PM PST Approved by: Jo Gilbert MD on 06/06/2024 7:00 PM PST Station ID: [id number]
--- NOTE | 2024-06-06 19:28 | ED Physician Documentation ---
ED Addendum Addendum Addendum: I received signout on this patient from Dr. Del Rio. In short, this patient presents for dyspnea for 1 day. She has a history of CHF but no COPD. I reviewed her labs and imaging. Her white blood cell count is elevated. There is a questionable right-sided infiltrate. This combination does seem suspicious for pneumonia. I reevaluated her and do auscultate crackles in the right lower lobe. She is requiring 4 L of oxygen to maintain saturations above 90%. She does tell me that she was admitted to a hospital last month for pneumonia, went to rehab, and then ultimately home. She has not had fever or chills. She has not been coughing. But she has been having dyspnea at rest and on exertion. I will admit her to the hospital due to hypoxemia and pneumonia. I ordered ceftriaxone and azithromycin. Blood cultures and lactic acid added on for possible sepsis. Unfortunately, there are no beds this evening, so we will hold her overnight until the morning. There were no acute events overnight. She remained on supplemental O2 in the morning. She awaits admission to the opital after I signed out to the day Dr. Esparza. Discharge Plan Discharge Patient Disposition: 66 [facility] DC/Xfer Clinical Impression: Acute respiratory distress, Pneumonia involving right lung, Acute hypoxemic respiratory failure Prescriptions: No Action aspirin 325 MG tablet 81 mg PO DAILY metoprolol succinate 50 MG tablet extended release 24 hr 50 mg PO DAILY Patient Comments: BID clopidogrel 75 MG tablet 75 mg PO DAILY amlodipine 5 MG tablet 7.5 mg PO DAILY cyanocobalamin (vitamin B-12) 1,000 MCG capsule 1,000 mcg PO DAILY amiodarone 200 MG tablet 200 mg PO DAILY famotidine 20 MG tablet 20 mg PO BID cholecalciferol (vitamin D3) 25 MCG capsule 1,000 unit PO DAILY rosuvastatin [Crestor] 40 MG tablet 40 mg PO DAILY Print Language: Maltese EKG Complete Tracing Completed: Yes Interpretation Completed: Yes EKG rate: 77 EKG Rhythm: Sinus Rhythm EKG Comparison: Reviewed EKG Details: LBBB. No ischemic ST elevations or depressions.
[2024-06-06] MEDS ORDERED: cefTRIAXone 1 GM VIAL ONE (20:16)
[2024-06-06] MEDS: cefTRIAXone 1 GM in SODIUM CHLORIDE 0.9% MINIBAG 100 ML IV STA (20:20)
[2024-06-06 20:54] LABS: B. PARAPERTUSSIS- RESP PCR PAN NOT DETECTED; B. PERTUSSIS- RESP PCR PANEL NOT DETECTED; C. PNEUMONIAE- RESP PCR PANEL NOT DETECTED; CORONAVIRUS 229E-RESP PCR NOT DETECTED; CORONAVIRUS HKU1-RESP PCR NOT DETECTED; CORONAVIRUS NL63-RESP PCR NOT DETECTED; CORONAVIRUS OC43-RESP PCR NOT DETECTED; HUMAN METAPNEUMOVIRUS NOT DETECTED; INFLUENZA A- RESP PCR PANEL NOT DETECTED; INFLUENZA B - RESP PCR PANEL NOT DETECTED; M. PNEUMONIAE- RESP PCR PANEL NOT DETECTED; PARAINFLUENZA VIRUS 1 NOT DETECTED; PARAINFLUENZA VIRUS 2 NOT DETECTED; PARAINFLUENZA VIRUS 4 NOT DETECTED; RHINOVIRUS/ENTEROVIRUS NOT DETECTED; RSV- RESP PCR PANEL NOT DETECTED; SARS-CoV-2 -RESP PCR PANEL NOT DETECTED
[2024-06-06] MEDS: AZITHROMYCIN INJ 500 MG in SODIUM CHLORIDE 0.9% 250 ML IV STA (21:22)
[2024-06-07 05:33] LABS: BASOPHILS % (AUTO) 0.3 %; EOSINOPHILS # (AUTO) 0.1 10^3/uL (0.0-0.7); EOSINOPHILS % (AUTO) 1.2 %; HCT - HEMATOCRIT 30.8 % (37.0-47.0); HGB - HEMOGLOBIN 9.9 g/dL (12.0-16.0); LYMPHOCYTES # (AUTO) 2.5 10^3/uL (1.5-3.5); LYMPHOCYTES % (AUTO) 26.8 %; MEAN CORPUSCULAR HEMOGLOBIN 30.7 pg (27.0-31.0); MEAN CORPUSCULAR HGB CONC 32.1 g/dL (32.0-36.0); MEAN CORPUSCULAR VOLUME 95.4 fL (81.0-99.0); MEAN PLATELET VOLUME 10.8 fL (7.9-10.8); MONOCYTES # (AUTO) 0.9 10^3/uL (0.0-1.0); MONOCYTES % (AUTO) 9.8 %; NEUTROPHILS # (AUTO) 5.8 10^3/uL (1.5-6.6); NEUTROPHILS % (AUTO) 61.7 %; PLT - PLATELET COUNT 188 10^3/uL (130-450); RED BLOOD COUNT 3.23 10^6/uL (4.20-5.40); RED CELL DISTRIBUTION WIDTH 14.3 % (12.0-15.0); WHITE BLOOD COUNT 9.4 x10^3/uL (4.8-10.8)
[2024-06-07 05:45] LABS: CALCIUM 9.5 mg/dL (8.5-10.3); CREATININE 1.6 mg/dL (0.6-1.3); POTASSIUM 4.4 mmol/L (3.5-4.5)
[2024-06-07] MEDS ORDERED: ONDANSETRON 4 MG/2 ML VIAL IVP PRN ×2 (07:21→14:35)
--- NOTE | 2024-06-07 07:28 | ED Physician Documentation ---
ED Addendum Addendum Addendum: Care from the overnight emergency physician at 7 AM shift change. She has a history of stroke and CHF. Reportedly no history of COPD or emphysema but is a former smoker, she says she quit about 2 months ago. She came in last night with acute shortness of breath and hypoxemia with room air sats down to 75% or so. Chest x-ray demonstrated possible right basilar pneumonia and she had labs notable for a white count of 16,000 and an elevated BNP at 943. She was given Lasix, Rocephin and azithromycin and Nitropaste. She was seen and examined at the bedside. She says she is doing much better. She is having a headache from the Nitropaste. On examination she appears comfortable on nasal cannula, currently at 4 L. Her breath sounds were slightly diminished at the bases with bibasilar crackles, right greater than left. Labs reviewed and she does have a mild worsening of a chronic anemia, CKD with GFR of 32 which is also chronic, very mild elevation of her troponin. She is boarding for admission at this time. I do wonder if she might have a PE given the relatively unimpressive chest x-ray. I put in her home meds, will repeat a troponin and CT angiography of the chest. There are no beds currently in the hospital but hopefully later in the day there will be. CT angiography of the chest demonstrates tiny bilateral pleural effusions with atelectasis. There is no pneumonia or pulmonary embolism. Does have a Watchman in place. As such it is seeming more like her shortness of breath is probably a combination of COPD and CHF. I am ordering steroids and scheduled Lasix in addition to the meds she has been getting. At 9 AM the nurse clarified her home meds with the family and these were corrected. A bed became available on the floor and I spoke with Dr. Anders for admission at 10:27 AM. The patient and family are counseled as to the diagnosis and need for admission. This document was made in part using voice recognition software, while efforts are made to proofread this document, sound alike an grammatical errors may occur. Discharge Plan Discharge Patient Disposition: 66 [facility] DC/Xfer Clinical Impression: Acute respiratory distress, Acute hypoxemic respiratory failure, Congestive heart failure, Severe chronic obstructive pulmonary disease Prescriptions: No Action metoprolol succinate 50 MG tablet extended release 24 hr 50 mg PO DAILY Patient Comments: BID cholecalciferol (vitamin D3) 25 MCG capsule 1,000 unit PO DAILY Eliquis 2.5 mg tablet 2.5 mg PO BID levetiracetam [Keppra] 500 mg tablet 500 mg PO BID sertraline 50 mg tablet 50 mg PO DAILY loratadine [Allerclear] 10 mg tablet 10 mg PO DAILY rosuvastatin 10 mg tablet 10 mg PO DAILY meclizine 25 mg tablet 25 mg PO TID PRN (Reason: dizziness or vertigo) trazodone 50 mg tablet 25 mg PO HS Print Language: Mohawk
[2024-06-07] MEDS: ACETAMINOPHEN 500 MG TABLET PO PRN (07:34)
[2024-06-07] MEDS ORDERED: iohexoL-300 100 ML VIAL ONE (08:12)
--- NOTE | 2024-06-07 09:09 | CT Report ---
PROCEDURE: CT Angio Chest INDICATIONS: dyspnea CONTRAST: omni 300, 80 TECHNIQUE: After the administration of intravenous contrast, 2 mm axial images were acquired from the pulmonary apices to the posterior costophrenic angles during the arterial phase. In addition, 1 mm lung kernel and 5 mm soft tissue kernel reconstructions were performed. 3-dimensional coronal oblique maximum int ensity projection (MIP) reformats, 8 mm axial MIP, and 5 mm coronal and sagittal MPR reformats were t hen performed through the thorax. For radiation dose reduction, the following was used: automated exp osure control, adjustment of mA and/or kV according to patient size. COMPARISON: None. FINDINGS: Image quality: There is streak artifact seen through the level of the shoulders. Large vessels: No filling defects within the opacified pulmonary arteries, accounting for motion and contrast timing. No evidence of acute aortic syndrome or aortic aneurysm. Lungs and pleura: Trace bilateral pleural effusions are seen, with mild overlying atelectasis. No pne umothorax is seen. No suspicious pulmonary consolidation can be seen. No suspicious pulmonary nodule is seen. Mediastinum: A left atrial appendage occlusion device is seen. Heart size is normal. No pericardial e ffusion. No large vessel abnormality. No mediastinal adenopathy by size criteria. Chest wall and lower neck: Thyroid is unremarkable. No axillary or supraclavicular adenopathy by size . Bones: No aggressive osseous abnormality. There is accentuated thoracic kyphosis. Age-appropriate de generative changes are seen. Upper Abdomen: Unremarkable. IMPRESSION: No pulmonary embolus. Trace bilateral pleural effusions are seen, with mild overlying atelectasis. Additional findings: Left atrial appendage occlusion device. Reviewed by: Neo Vanegas MD on 06/07/2024 8:08 AM [facility] Approved by: Neo Vanegas MD on 06/07/2024 8:08 AM [facility] Station ID: [id number]
[2024-06-07] MEDS: AMIODARONE 200 MG TABLET PO SCH (09:32)
[2024-06-07] MEDS: ASPIRIN CHEW 81 MG TABLET PO SCH (09:32)
[2024-06-07] MEDS: CLOPIDOGREL 75 MG TABLET PO SCH (09:32)
[2024-06-07] MEDS: FAMOTIDINE 20 MG TABLET PO SCH (09:36)
[2024-06-07] MEDS: METOPROLOL SUCCINATE 50 MG TABLET PO SCH (09:36)
[2024-06-07] MEDS ORDERED: levETIRAcetam 100 MG/ML 473ML BOTTLE PO SCH (10:00)
[2024-06-07] MEDS: APIXABAN 2.5 MG TABLET PO SCH (10:07)
[2024-06-07] MEDS: SERTRALINE 50 MG TABLET PO SCH (10:07)
[2024-06-07] MEDS: methylPREDNISolone SUCCINATE 40 MG/ML VIAL IVP SCH (10:08)
[2024-06-07] MEDS: FUROSEMIDE 20 MG/2 ML VIAL IVP SCH (10:09)
[2024-06-07] MEDS ORDERED: SODIUM CHLORIDE FLUSH 0.9% 10 ML SYRINGE IVP PRN ×2 (14:35)
[2024-06-07] MEDS ORDERED: ACETAMINOPHEN 325 MG TABLET PO PRN (14:35)
[2024-06-07] MEDS ORDERED: ONDANSETRON ODT 4 MG TABLET TL PRN (14:35)
[2024-06-07] MEDS ORDERED: oxyCODONE 5 MG TABLET PO PRN (14:35)
--- NOTE | 2024-06-07 14:48 | HISTORY & PHYSICAL EXAMINATION ---
Chief Complaint <Inna Isaacs - Last Filed: 06/07/24 18:10> Chief Complaint Chief Complaint: Shortness of breath History of Present Illness <Inna Isaacs - Last Filed: 06/07/24 18:10> Admitted From Admitted From:: Emergency Room History Obtained From History obtained from: Patient and her daughter Brooke History of Present Illness HPI Comment/Other: Keiko is a tired appearing female sitting up in bed. She presents with a chief complaint of shortness of breath. She reports the shortness of breath started yesterday morning 06/06/2024 and was first intermittent but gradually worsened over the course of the day. She describes the sensation as a heaviness pressing down on both shoulders, tightness, and feeling of fear and air hunger. She denies any chest pain, pleuritic pain, squeezing, or palpitations. She reports leaning forward with her hands on her knees was helpful, while sitting upright made it worse. She was taken to the ER in an ambulance after alerting her neighbor that she was not feeling well. She still feels some shortness of breath and air hunger at present, but it is not as bad as it was before. She smoked for 30 years but quit "against her will" in March. She now uses a nicotine vape every morning and evening. She denies any marijuana use or recreational or prescription drug abuse. She reports she has a history of CKD Stage IV, CHF, atrial fibrillation, left bundle branch block, glaucoma, and hyperlipidemia. 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 She spent time in a rehabilitation facility and only returned home in the last week. She was set up with home health and had a caregiver scheduled to start with her on Sunday. She reports significant weakness in her left arm, and some weakness in her right arm and leg from her previous strokes. She also reports significant visual disturbances since her recent stroke. She sees "sparkle benavides" in the periphery of her vision, or "blades of grass". She states her vision is very blurry since the recent stroke and that she can no longer recognize words when she reads them. She has no other major concerns at this time. Meds/Allgy <Inna Isaacs - Last Filed: 06/07/24 18:10> Home Medications Ambulatory Orders Medication Instructions Recorded Confirmed metoprolol succinate 50 mg 50 mg PO DAILY 05/03/15 06/07/24 tablet,extended release 24 hr cholecalciferol (vitamin D3) 25 1,000 unit PO DAILY 10/06/21 06/07/24 mcg (1,000 unit) capsule apixaban 2.5 mg tablet (Eliquis) 2.5 mg PO BID 06/07/24 06/07/24 levetiracetam 500 mg tablet 500 mg PO BID 06/07/24 06/07/24 (Keppra) loratadine 10 mg tablet 10 mg PO DAILY 06/07/24 06/07/24 (Allerclear) meclizine 25 mg tablet 25 mg PO TID PRN dizziness or 06/07/24 06/07/24 vertigo rosuvastatin 10 mg tablet 10 mg PO DAILY 06/07/24 06/07/24 sertraline 50 mg tablet 50 mg PO DAILY 06/07/24 06/07/24 trazodone 50 mg tablet 25 mg PO HS 06/07/24 06/07/24 furosemide 20 mg tablet (Lasix) 20 mg PO DAILY #30 tabs 06/08/24 ipratropium 20 mcg-albuterol 100 1 puff inhalation QID #4 grams 06/08/24 mcg/actuation mist for inhalation (Combivent Respimat) potassium chloride 10 mEq 10 meq PO DAILY #30 tabs 06/08/24 tablet,extended release(part/cryst) (Klor-Con M) Allergies Allergies Allergy/AdvReac Type Severity Reaction Status Date / Time atropine Allergy Unknown Verified 06/06/24 18:29 clindamycin Allergy Unknown Verified 06/06/24 18:29 codeine Allergy Rash Verified 06/06/24 18:29 diphenoxylate Allergy Unknown Verified 06/06/24 18:29 nitrofurantoin Allergy Unknown Verified 06/06/24 18:29 Penicillins Allergy Unknown Verified 06/06/24 18:29 propoxyphene Allergy Unknown Verified 06/06/24 18:29 Sulfa (Sulfonamide Allergy Unknown Verified 06/06/24 18:29 Antibiotics) vancomycin Allergy Unknown Verified 06/06/24 18:29 venom-wasp AdvReac Rash Unverified 06/07/24 14:40 mushrooms Allergy Unknown Uncoded 06/06/24 18:29 PFSH <Inna Ghilarducci - Last Filed: 06/07/24 18:10> Medical History Medical History (Updated 06/08/24 @ 10:50 by Inna Isaacs) Hyperlipidemia Nausea Most days since stroke 03/2024, alleviated with Zofran Community acquired pneumonia some time in 2023, was hospitalized and went into septic shock Moderate pulmonary hypertension Moderate mitral stenosis Mild aortic stenosis History of transesophageal echocardiography (CHACHO) 07/2021 and 09/2021 with Arnold Magallon MD (for ablation eval) STEMI (ST elevation myocardial infarction) put in H for 03/2023 admit for chf but there is no record of year or a cath done. She is followed by [facility]. Patient denies hx of STEMI CHF (congestive heart failure) Nonischemic cardiomyopathy. echo 06/2020 EF 54%, mild to mod and AR and MR. echo 02/14/23 w EF 50-55%, nml byrd. LAE mild. AV calcified mild 2.7 m/s. Mean 17 mmhg. Valve area 1.1cm2. Mild to mod AR. Mild MS w mean 4.5. Mod MR. mod pulm HTN. PASP 50 mmHg. admit 04/06/23 for sob 2 days after Watchman. Treated as mild fluid overload w CPAP and lasix, and felt cause more mucous plugging. Metoprolol stopped for bradycardia and continued amiodarone. Presence of Watchman left atrial appendage closure device 04/04/23 Reflex sympathetic dystrophy, unspecified LBBB (left bundle branch block) Glaucoma Epiretinal membrane L eye, green blades of outer periphery of vison Tobacco abuse 0.3 ppd starting 1971. down to 0.25 ppd. Stopped 03/2024 Vertigo History of recurrent UTI (urinary tract infection) Osteoarthritis Mixed anxiety and depressive disorder Stroke from afib. R sided deficits then. s/p watchman~2022, on amiodarone, then ablation 04/04/23. 03/2024 another CVA put back on eliquis for hemorrhaghic or embolic CVA Atrial fibrillation ablation 04/04/2023. metoprolol stopped due to bradycardia with 04/06/2023 admit for pna Iron deficiency anemia Noted 11/2019. Hgb 11.4. EGD 05/17 with transfusion. Vascular disease carotid stenosis with L CEA Hypertension CKD (chronic kidney disease) stage 4, GFR 15-29 ml/min see Otto Orlando MD [facility]. Has proteinuria. HCTZ stopped and started on jardiane/empaglifozin instead 02/29/24. Limit water to 2 L a day. Surgical History Surgical History (Updated 06/07/24 @ 14:49 by Layla Anders MD) History of esophagogastroduodenoscopy (EGD) with biopsy 05/10/21 by Adrianna Kirby DO History of hysterectomy uterus and cervix removed Status post de Quervain release surgery History of carpal tunnel surgery H/O cataract removal with insertion of prosthetic lens R & L eye 10/2021 H/O carotid endarterectomy Family History Family History (Updated 06/07/24 @ 15:14 by Inna Isaacs) Father CAD (coronary artery disease) Heart attack Diabetes Mother CVA (cerebral vascular accident) Arthritis Son Autism Son Colon cancer Epilepsy Learning disability Daughter No problems noted. Daughter No problems noted. Sister Epilepsy Sister No problems noted. Sister No problems noted. Brother No problems noted. Social History Social History (Updated 06/07/24 @ 15:10 by Inna Isaacs) Smoking Status: Former smoker If you are a former smoker, when did you quit? (Date/Year): 03/2024 Number of Years Smoked: 30 How many cigarettes a day do you smoke? (20 cigarettes=1 Pk): 20 Second hand tobacco smoke exposure: No Do you dip or chew tobacco?: No Do you vape?: Yes Patient requests smoking cessation consult: No Initiate information on smoking cessation: No Smoking Status Details: Pt reports smoking for 30 years. Stopped in Mar or Apr 2024 d/t her stroke. Has had 2 puffs on Sunday. Pt declined smoke cessation information. Living arrangement: At home Marital Status: More Information: roomate with autism, has home health, had a caregiver scheduled to start Relationship: Level: Assisted Home Mobility Equipment: Walker Physical - Functional Details: needs help with ADLs d/t R sided weakness and L arm deficits, cant drive d/t visual deficits Do you feel safe in your home environment?: Yes Suffered physical, verbal, emotional, or financial abuse?: No History of Abuse: No ETOH Use: None Frequency: Occasional ETOH Use Details: stopped drinking 20 years ago, denies history of alcohol abuse Substance Use: denies use Substance Use Details: has smoked marijuana in the past Are you sexually active?: No Control Method: Other Sexual Practice Notes: Hysterectomy, not sexually active since in 2018 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, 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, 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, 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 Retired: Yes POLST Patient has POLST: No POLST Status: With cardiology office Review of Systems <Inna Ferny - Last Filed: 06/07/24 18:10> Constitutional Reports: Weakness (still recovering from stroke 03/2024), Changes in appetite or eating habits (decreased appetite since stroke 03/2024) and Weight loss (notes some weight loss since stroke 03/2024); Denies: Fever, Chills, Night sweats or Weight gain Eyes Reports: Blurry vision (significantly worse s/p stroke 03/2024), Change in vision (sees "big blue sparkle benavides" or "blades of grass" in periphery s/p stroke), Corrective lenses and Other (cannot interpret words she is reading since stroke 03/2024); Denies: Pain, Irritation, Eye discomfort or Eye discharge Ears, nose, mouth, and throat Reports: Difficulty swallowing (has to take smaller bites since stroke 03/2024) and Dry mouth; Denies: Hearing loss, Throat pain or Throat swelling Cardiovascular Reports: palpitations (in the past when she is in afib she can feel it ), shortness of breath with exertion and shortness of breath when lying down; Denies: chest pain or bluish discoloration of hands/feet Respiratory Reports: Shortness of breath, SOB at rest and SOB with exertion; Denies: Cough, Pleuritic pain or Pain on inspiration Gastrointestinal Reports: Nausea (3-4 years, takes Zofran), Poor appetite, Difficulty swallowing (has to take smaller bites since stroke 03/2024), Change in stool character (softer stools since stroke 03/2024) and other (foul gas); Denies: Abdominal pain, Abdominal distention, Vomiting, Diarrhea, Constipation, Melena or Blood in stool Genitourinary Reports: Nocturia (1-2x per night ); Denies: Painful urination, Urinary frequency, Blood in urine, Difficulty voiding, Urethral discharge or Genital itching Musculoskeletal Reports: Joint pain (arthritis in hands, feet, hips), Muscle weakness (r arm and leg, l arm weakness after multiple CVAs) and Other (left hand contracture and forearm atrophy ); Denies: Muscle pain, Muscle aches or Muscle cramps Integumentary/Breast Denies: Rash, Itching, Skin tenderness, Sores or Changes in skin color Neurological Reports: Pre-existing deficit (r sided weakness, left arm weakness and atrophy) and Memory problems (some trouble with recall since stroke 03/2024 ); Denies: Numbness in extremities Psychiatric Reports: Depression ( depression, history of situational depression) and Suicidal ideation (once in the past, no active ideation today); Denies: Anxiety or Homicidal ideation Endocrine Denies: Excessive urination or Polyphagia Hematologic/Lymphatic Reports: Easy bruising; Denies: Enlarged lymph nodes Allergic/Immunologic Reports: Seasonal allergies; Denies: Throat swelling <Inna Elizabethkilo - Last Filed: 06/07/24 18:10> Prior Level of Functionality: Right-sided weakness after a CVA in 2012. Left arm contracture, atrophy, and weakness after a CVA 03/2024. Lives with a roomate. Has home health come 1x per week. Was recently discharged from a rehabilitation facility and was set up to have a daily caregiver coming starting 04/09/2025. She is unable to complete activities of daily living by herself. Walks with a walker. Exam <Inna Elizabethkilo - Last Filed: 06/07/24 18:10> Exam Keiko is a tired appearing female sitting up in bed. 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 Constitutional abnormal general appearance (disheveled), no apparent distress and average body habitus HENMT normocephalic, hearing grossly normal bilaterally, external ears normal, external nose normal, oral mucous membranes normal, dentition abnormal (no upper teeth) and gingiva normal Eyes PERRL, EOMs intact bilaterally, conjunctivae normal, no scleral icterus, normal visual pro by confrontation (normal static finger wiggle test ), alignment normal, periorbital findings normal, visual acuity abnormal (wearing glasses, reported visual disturbances/blurriness) and no nystagmus Neck/C-Spine trachea midline, cervical full ROM noted, supple and thyroid normal Lymph no lymphadenopathy noted (cervical) Chest inspection of chest normal Respiratory breath sounds equal bilaterally, normal respiratory effort, clear to auscultation bilaterally, no wheezes, no rales, no retractions and no use of accessory muscles Cardiovascular normal heart rate noted, regular rhythm noted, murmur noted (systolic) (crescendo/decrescendo ) and (III/), no JVD and no edema Gastrointestinal abdomen soft to palpation, nontender to palpation, nondistended and normoactive bowel sounds Genitourinary bladder normal to palpation Back/Pelvis spine normal to inspection and no paraspinal muscle tenderness noted Extremities abnormal to inspection (contracture and atrophy of left hand/forearm), normal to palpation and no tenderness Neurology cranial nerve findings as noted: (abnormal CN II - optic), no movement abnormality noted, no sensory deficits noted, speech normal and no fasciculations noted Psychiatry mental status grossly normal, oriented x3, thought process normal, cooperative, affect normal, psychomotor activity normal and memory abnormal (some issues with recall like dates and medications) Skin skin color normal (visualized legs, arms, chest, back, face ), no rash, no lesions, no wounds, no lacerations, no jaundice, no petechiae and no mottling Sepsis Event Note (H) <Inna Isaacs - Last Filed: 06/07/24 18:10> Evaluation Current Stage of Sepsis: Resolved (resolved with IV antibiotics, IV diuretics, and O2 administration ) Possible source of Sepsis: positive Unknown Sepsis Criteria Sepsis Criteria: Recorded Temperature greater than 38.3C or Less than 36C, Recorded Respiratory Rate greater than 20 and WBC count greater than 12,000 or less than 4000 Conclusion/Plan <Inna Isaacs - Last Filed: 06/07/24 18:10> Problem List (1) Acute hypoxemic respiratory failure: Plan: - Patient is currently on 2.2 L of O2, her baseline is no supplemental O2 use - Likely secondary to acute CHF in the setting of COPD exacerbation - Respiratory virus panel negative and history not consistent with URI symptoms - Suspicion of an infectious process is low but not ruled out, will continue to trend WBCs and temperature pending blood culture results - Plan to continue oxygen administration via nasal canula as needed (2) Acute CHF: Plan: - Patient has a history of congestive heart failure with preserved ejection fraction - BNP taken 06/06/2024 was high at 943 - Based on her chest x-ray and history, it is likely she has COPD - COPD can lead to fibrosis in the small airways causing pulmonary hypertension - I suspect her CHF is secondary to pulmonary hypertension, previous STEMI, history of mitral and aortic stenosis, and hypertension - Plan to continue oxygen administration via nasal canula as needed - Plan to continue furosemide 20 mg IV BID to minimize fluid overload (3) COPD with exacerbation: Plan: - 30 year smoking history and current daily vape use - Patient is currently on 2.2 L of O2, her baseline is no supplemental O2 use - Chest X-ray noted hyperexpanded lungs suggestive of COPD with mild right basilar opacity - I suspect the patient's history of smoking, coupled with the normal aging process, has led to symptomatic COPD - This is likely exacerbated by her congestive heart failure - Plan to continue oxygen administration via nasal canula as needed - Plan to continue methylprednisolone succinate 40mg IV TID to minimize airway inflammation (4) Shortness of breath: Plan: - Patient is currently on 2.2 L of O2, her baseline is no supplemental O2 use - Chest X-ray noted hyperexpanded lungs suggestive of COPD with mild right basilar opacity - Chest/Thorax CT angiogram found trace bilateral pleural effusions with mild overlying atelectasis - I suspect her shortness of breath is in the setting of CHF and COPD - Plan to continue oxygen administration via nasal canula as needed - Plan to continue methylprednisolone succinate 40mg IV TID to minimize airway inflammation - Plan to continue furosemide 20 mg IV BID to reduce pulmonary congestion (5) SIRS (systemic inflammatory response syndrome): Plan: - WBC now in the normal range at 9.4 as opposed to 16.1 on arrival to the ER 06/06/2024 - Respiratory rate in the normal range on 2.2 L of oxygen, patient is not on oxygen at baseline - Patient has a normal temperature and pulse, blood pressure is hypertensive - I have a low suspicion of any infectious process - Plan to continue IV ceftriaxone and IV azithromycin q24h as blood culture results are pending (6) Hypertension: Plan: - Patient is currently hypertensive - Plan to continue home metoprolol succinate 50 mg PO daily (7) Atrial fibrillation: Plan: - Patient is currently asymptomatic and has a normal pulse rate - Plan to continue home metoprolol succinate 50 mg PO daily (8) CKD (chronic kidney disease) stage 4, GFR 15-29 ml/min: Plan: - Plan to continue to manage patient blood pressure with her home metoprolol succinate 50 mg PO daily - Plan to monitor kidney function with daily BMP (9) Iron deficiency anemia: Plan: - Iron deficiency anemia can contribute to shortness of breath - Plan to supplement with a one time dose of IV ferrous gluconate (10) Mixed anxiety and depressive disorder: Plan: - Patient does not report any current symptoms - Plan to continue home sertraline and trazodone (11) Nausea: Plan: - Patient reports nausea on and off since her CVA 03/2024 - IV ondansetron ordered for prn use (12) Hyperlipidemia: Plan: - Plan to continue statin therapy with available pharmacy formulary Lab Results Lab results reviewed: Yes 06/08/24 05:32 06/08/24 05:32 Other Lab Results: I have reviewed the patient's labs. Her Rbc, Hgb, Hct are low. This indicated a normocytic anemia likely in the presence of chronic kidney disease. Her creatinine is elevated at 1.6, her GFR is low at 32 which is consistent with her chronic kidney disease. She has mildly elevated troponin at 18.6. This is in the context of CHF and shortness of breath which could cause myocardial strain. Diagnostic Imaging Results Diagnostic Imaging Results: positive Final report reviewed Diagnostic Imaging Results Comments: Chest X-ray 06/06/2024: IMPRESSION: Mild increased right basilar opacity. This could represent dependent change versus developing pneumonia. Chest/Thorax CTA 06/07/2024: IMPRESSION: No pulmonary embolus. Trace bilateral pleural effusions are seen, with mild overlying atelectasis. EKG Results EKG Comparison: No prior EKG EKG Findings: Sinus rhythm Probable left atrial enlargement Left bundle branch block ST elevation secondary to IVCD <Layla Anders MD - Last Filed: 06/08/24 15:55> Problem List (1) Acute hypoxemic respiratory failure: (2) Acute CHF: (3) COPD with exacerbation: (4) Shortness of breath: (5) SIRS (systemic inflammatory response syndrome): (6) Hypertension: (7) Atrial fibrillation: (8) CKD (chronic kidney disease) stage 4, GFR 15-29 ml/min: (9) Iron deficiency anemia: (10) Mixed anxiety and depressive disorder: (11) Nausea: (12) Hyperlipidemia: Core Measures <Inna Ghilarducavani - Last Filed: 06/07/24 18:10> Anticipated LOS I expect patient to be DC'd or transferred within 96 hours.: Yes Issues Hospital Issues and Management Plan: see Conclusion/Plan DVT/VTE - Prophylaxis VTE/DVT Device ordered at admit?: No Not Ordered - Medical Reason: Not indicated VTE/DVT Prophylaxis med ordered at admit?: Yes
[2024-06-07] MEDS: SODIUM CHLORIDE FLUSH 0.9% 10 ML SYRINGE IVP SCH ×2 (15:54)
[2024-06-07] MEDS: iohexoL-300 100 ML VIAL IVP ONE (17:08)
[2024-06-07] MEDS ORDERED: FERRIC GLUCONATE 62.5 MG/5 ML VIAL IVP ONE (17:28)
[2024-06-07] MEDS: AZITHROMYCIN INJ 500 MG in SODIUM CHLORIDE 0.9% 250 ML IV SCH (19:10)
[2024-06-07] MEDS: cefTRIAXone 1 GM in SODIUM CHLORIDE 0.9% MINIBAG 100 ML IV SCH (20:55)
[2024-06-07] MEDS: levETIRAcetam 250 MG TABLET PO SCH (21:23)
[2024-06-07] MEDS: ATORVASTATIN 40 MG TABLET PO SCH (21:23)
[2024-06-07] MEDS: traZODone 50 MG TABLET PO SCH (21:24)
[2024-06-08] MEDS: PANTOPRAZOLE 40 MG TABLET PO SCH (05:25)
[2024-06-08 06:09] LABS: BASOPHILS % (AUTO) 0.1 %; HCT - HEMATOCRIT 28.9 % (37.0-47.0); HGB - HEMOGLOBIN 9.6 g/dL (12.0-16.0); LYMPHOCYTES # (AUTO) 0.9 10^3/uL (1.5-3.5); LYMPHOCYTES % (AUTO) 9.4 %; MEAN CORPUSCULAR HEMOGLOBIN 30.6 pg (27.0-31.0); MEAN CORPUSCULAR HGB CONC 33.2 g/dL (32.0-36.0); MEAN PLATELET VOLUME 11.5 fL (7.9-10.8); MONOCYTES # (AUTO) 0.3 10^3/uL (0.0-1.0); MONOCYTES % (AUTO) 2.7 %; NEUTROPHILS # (AUTO) 8.2 10^3/uL (1.5-6.6); NEUTROPHILS % (AUTO) 87.5 %; PLT - PLATELET COUNT 185 10^3/uL (130-450); RED BLOOD COUNT 3.14 10^6/uL (4.20-5.40); RED CELL DISTRIBUTION WIDTH 13.9 % (12.0-15.0); WHITE BLOOD COUNT 9.4 x10^3/uL (4.8-10.8)
[2024-06-08 06:21] LABS: CALCIUM 8.9 mg/dL (8.5-10.3); CREATININE 1.7 mg/dL (0.6-1.3); POTASSIUM 3.6 mmol/L (3.5-4.5)
[2024-06-08] MEDS ORDERED: IPRATROPIUM/ALBUTEROL 3 ML NEB INH PRN (07:54)
--- NOTE | 2024-06-08 08:12 | PROVIDER PROGRESS NOTE ---
Current Medications Current Medications Current Medications: Current Medications Generic Name Dose Route Start Last Admin Trade Name Freq PRN Reason Stop Dose Admin Acetaminophen 1,000 mg 06/07/24 07:21 06/07/24 22:23 Acetaminophen 500 Mg Tablet PO 1,000 mg Q6H PRN Administration Mild Pain Or Fever>38c(100.4f) Acetaminophen 650 mg 06/07/24 14:35 Acetaminophen 325 Mg Tablet PO Q4HR PRN Pain 1 to 4, or Fever Albuterol/Ipratropium 3 ml 06/08/24 07:54 Ipratropium/Albuterol 3 Ml Neb INH RTQID PRN Shortness of Air/Wheezing Apixaban 2.5 mg 06/07/24 10:00 06/07/24 21:24 Apixaban 2.5 Mg Tablet PO 2.5 mg BID TITA Administration Atorvastatin Calcium 40 mg 06/07/24 21:00 06/07/24 21:23 Atorvastatin 40 Mg Tablet PO 40 mg QPM TITA Administration Furosemide 20 mg 06/07/24 10:00 06/08/24 06:50 Furosemide 20 Mg/2 Ml Vial IVP 20 mg BIDDIURETIC TITA Administration Ceftriaxone Sodium 1 gm/ 100 mls @ 200 mls/hr 06/07/24 20:00 06/07/24 22:32 Sodium Chloride IV Infused Q24H TITA Infusion Azithromycin 500 mg/ Sodium 250 mls @ 250 mls/hr 06/07/24 19:00 06/07/24 21:04 Chloride IV Infused Q24H TITA Infusion Ferric Sodium Gluconate 110 mls @ 110 mls/hr 06/08/24 09:00 Complex 125 mg/ Sodium IV 06/08/24 09:59 Chloride ONCE ONE Levetiracetam 500 mg 06/07/24 21:00 06/07/24 21:23 Levetiracetam 250 Mg Tablet PO 500 mg BID TITA Administration Methylprednisolone 40 mg 06/07/24 10:00 06/08/24 06:50 Methylprednisolone Succinate 40 Mg/Ml Vial IVP 40 mg TID TITA Administration Metoprolol Succinate 50 mg 06/07/24 09:00 06/07/24 09:36 Metoprolol Succinate 50 Mg Tablet PO 50 mg DAILY TITA Administration Ondansetron HCl 4 mg 06/07/24 07:21 Ondansetron 4 Mg/2 Ml Vial IVP Q6HR PRN Nausea / Vomiting Ondansetron HCl 4 mg 06/07/24 14:35 Ondansetron Odt 4 Mg Tablet TL Q6HR PRN Nausea / Vomiting Ondansetron HCl 4 mg 06/07/24 14:35 Ondansetron 4 Mg/2 Ml Vial IVP Q6HR PRN Nausea / Vomiting Oxycodone HCl 5 mg 06/07/24 14:35 Oxycodone 5 Mg Tablet PO Q4HR PRN Pain 5 to 7 Pantoprazole Sodium 40 mg 06/08/24 07:00 06/08/24 05:25 Pantoprazole 40 Mg Tablet PO Not Given QDAC TITA Sertraline HCl 50 mg 06/07/24 10:00 06/07/24 10:07 Sertraline 50 Mg Tablet PO 50 mg DAILY TITA Administration Sodium Chloride 10 ml 06/07/24 17:00 06/08/24 00:03 Sodium Chloride Flush 0.9% 10 Ml Syringe IVP 10 ml 0100,0900,1700 TITA Administration Sodium Chloride 10 ml 06/07/24 14:35 Sodium Chloride Flush 0.9% 10 Ml Syringe IVP PRN PRN NEEDED PER PROVIDER ORDERS Sodium Chloride 10 ml 06/07/24 14:35 Sodium Chloride Flush 0.9% 10 Ml Syringe IVP PRN PRN NEEDED PER PROVIDER ORDERS Sodium Chloride 10 ml 06/07/24 17:00 06/08/24 00:03 Sodium Chloride Flush 0.9% 10 Ml Syringe IVP Not Given 0100,0900,1700 TITA Trazodone HCl 25 mg 06/07/24 21:00 06/07/24 21:24 Trazodone 50 Mg Tablet PO 25 mg QPM TITA Administration Objective Vital Signs/Intake & Output Vital Signs: Vital Signs x48h Pulse Ox 06/08/24 03:12 97 Intake & Output: Intake & Output 06/05/24 06/06/24 06/07/24 06/08/24 23:59 23:59 23:59 23:59 Intake Total 350 / 350 840 / 840 Output Total 700 / 700 250 / 250 Balance -350 / -350 590 / 590 Weight (kg) 61.2 kg 61.2 kg Lab Results 06/08/24 05:32 06/08/24 05:32 Other Labs: Lab Results x24hrs 0106/07/24 06/07/24 Range/Units 05:32 16:00 07:42 WBC 9.4 (4.8-10.8) x10^3/uL RBC 3.14 L (4.20-5.40) 10^6/uL Hgb 9.6 L (12.0-16.0) g/dL Hct 28.9 L (37.0-47.0) % MCV 92.0 (81.0-99.0) fL MCH 30.6 (27.0-31.0) pg MCHC 33.2 (32.0-36.0) g/dL RDW 13.9 (12.0-15.0) % Plt Count 185 (130-450) 10^3/uL MPV 11.5 H (7.9-10.8) fL Neut # (Auto) 8.2 H (1.5-6.6) 10^3/uL Lymph # (Auto) 0.9 L (1.5-3.5) 10^3/uL Riley # (Auto) 0.3 (0.0-1.0) 10^3/uL Eos # (Auto) 0.0 (0.0-0.7) 10^3/uL Baso # (Auto) 0.0 (0.0-0.1) 10^3/uL Absolute Nucleated RBC 0.00 x10^3/uL Nucleated RBC % 0.0 /100WBC Sodium 136 (135-145) mmol/L Potassium 3.6 (3.5-4.5) mmol/L Chloride 96 L (101-111) mmol/L Carbon Dioxide 30 (21-32) mmol/L Anion Gap 10.0 (6-13) BUN 26 H (6-20) mg/dL Creatinine 1.7 H (0.6-1.3) mg/dL Estimated GFR (MDRD) 30 L (>89) Glucose 171 H (74-104) mg/dL Calcium 8.9 (8.5-10.3) mg/dL Troponin I High Sens 18.6 H* (2.3-14.8) ng/L B-Natriuretic Peptide 730 H (5-100) pg/mL Nasal Screen MRSA (PCR) NEGATIVE (NEGATIVE) Sepsis Event Note (H) Evaluation Current Stage of Sepsis: Resolved (resolved with IV antibiotics, IV diuretics, and O2 administration ) Possible source of Sepsis: positive Unknown Sepsis Criteria Sepsis Criteria: Recorded Temperature greater than 38.3C or Less than 36C, Recorded Respiratory Rate greater than 20 and WBC count greater than 12,000 or less than 4000 Assessment/Plan Problem List (1) Acute hypoxemic respiratory failure: Impression: - Likely secondary to acute CHF in the setting of COPD exacerbation - Respiratory virus panel negative and history not consistent with URI symptoms - WBCs remain within normal limits, decreasing likelihood of an infectious process - Still awaiting blood culture results - Patient O2 is at 95% on room air at rest, she is back to baseline - Plan to continue oxygen administration via nasal canula as needed - O2 desaturation test ordered - Respiratory therapy ordered to trial albuterol nebulizer with patient - If patient responds well to nebulizer, we will send her home with an albuterol MDI (2) Acute CHF: Impression: - Patient has a history of congestive heart failure with preserved ejection fraction - Based on her chest x-ray and history, it is likely she has COPD - COPD can lead to fibrosis in the small airways causing pulmonary hypertension - I suspect her CHF is secondary to pulmonary hypertension, previous STEMI, history of mitral and aortic stenosis, and hypertension - BNP decreased from 943 on 06/06/2024 to 730 today - Patient O2 is at 95% on room air at rest, she is back to baseline - Plan to continue oxygen administration via nasal canula as needed - O2 desaturation test ordered - Plan to continue furosemide 20 mg IV BID to minimize fluid overload (3) COPD with exacerbation: Impression: - 30 year smoking history and current daily vape use - Chest X-ray noted hyperexpanded lungs suggestive of COPD with mild right basilar opacity - I suspect the patient's history of smoking, coupled with the normal aging process, has led to symptomatic COPD - This is likely exacerbated by her congestive heart failure - Patient O2 is at 95% on room air at rest, she is back to baseline - Plan to continue oxygen administration via nasal canula as needed - O2 desaturation test ordered - Plan to continue methylprednisolone succinate 40mg IV TID to minimize airway inflammation - Respiratory therapy ordered to trial albuterol nebulizer with patient - If patient responds well to nebulizer, we will send her home with an albuterol MDI (4) Shortness of breath: Impression: - Chest X-ray noted hyperexpanded lungs suggestive of COPD with mild right basilar opacity - Chest/Thorax CT angiogram found trace bilateral pleural effusions with mild overlying atelectasis - I suspect her shortness of breath is in the setting of CHF and COPD - Patient O2 is at 95% on room air at rest, she is back to baseline - Plan to continue oxygen administration via nasal canula as needed - O2 desaturation test ordered - Plan to continue methylprednisolone succinate 40mg IV TID to minimize airway inflammation - Plan to continue furosemide 20 mg IV BID to reduce pulmonary congestion (5) SIRS (systemic inflammatory response syndrome): Impression: - WBC remains within normal limits - Respiratory rate in the normal range without supplemental oxygen, patient is not on oxygen at baseline - Patient has a normal temperature and pulse, blood pressure is hypertensive - I have a low suspicion of any infectious process - Plan to continue IV ceftriaxone and IV azithromycin q24h as blood culture results are pending (6) Weakness: Impression: - Patient reports she feels weak and dizzy during activity, this concerns her when discussing discharge - She is worried she is regressing after just finishing rehabilitation from a stroke 03/2024 - PT ordered to assess patient strength and stability prior to discharge (7) Hypertension: Impression: - Patient is currently hypertensive - Plan to continue home metoprolol succinate 50 mg PO daily (8) Atrial fibrillation: Impression: - Patient is (?) asymptomatic and has a normal pulse rate - Plan to continue home metoprolol succinate 50 mg PO daily (9) CKD (chronic kidney disease) stage 4, GFR 15-29 ml/min: Impression: - BUN increased from 20 yesterday to 26 today - Creatinine increased from 1.6 yesterday to 1.7 today - GFR decreased from 32 yesterday to 30 today - Plan to continue to manage patient blood pressure with her home metoprolol succinate 50 mg PO daily - Plan to monitor kidney function with daily BMP (10) Iron deficiency anemia: Impression: - Iron deficiency anemia can contribute to shortness of breath - One time dose of IV ferrous gluconate given this morning (11) Mixed anxiety and depressive disorder: Impression: - Patient does not report any current symptoms - Plan to continue home sertraline and trazodone (12) Nausea: Impression: - Patient reports nausea on and off since her CVA 03/2024 - IV ondansetron ordered for prn use (13) Hyperlipidemia: Impression: - Plan to continue statin therapy with available pharmacy formulary
[2024-06-08] MEDS: FERRIC GLUCONATE 125 MG in SODIUM CHLORIDE 0.9% 100ML 100 ML IV ONE (09:56)
--- NOTE | 2024-06-08 14:17 | PHARMACY PROGRESS NOTE ---
Best Possible Medication History Admit Date and Time: 06/07/24 159394 Home Medications Medication Instructions Recorded Confirmed Type metoprolol succinate 50 mg 50 mg PO DAILY 05/03/15 06/07/24 History tablet,extended release 24 hr cholecalciferol (vitamin D3) 25 1,000 unit PO DAILY 10/06/21 06/07/24 History mcg (1,000 unit) capsule apixaban 2.5 mg tablet (Eliquis) 2.5 mg PO BID 06/07/24 06/07/24 History levetiracetam 500 mg tablet 500 mg PO BID 06/07/24 06/07/24 History (Keppra) loratadine 10 mg tablet 10 mg PO DAILY 06/07/24 06/07/24 History (Allerclear) meclizine 25 mg tablet 25 mg PO TID PRN dizziness or 06/07/24 06/07/24 History vertigo rosuvastatin 10 mg tablet 10 mg PO DAILY 06/07/24 06/07/24 History sertraline 50 mg tablet 50 mg PO DAILY 06/07/24 06/07/24 History trazodone 50 mg tablet 25 mg PO HS 06/07/24 06/07/24 History furosemide 20 mg tablet (Lasix) 20 mg PO DAILY #30 tabs 06/08/24 Rx ipratropium 20 mcg-albuterol 100 1 puff inhalation QID #4 grams 06/08/24 Rx mcg/actuation mist for inhalation (Combivent Respimat) potassium chloride 10 mEq 10 meq PO DAILY #30 tabs 06/08/24 Rx tablet,extended release(part/cryst) (Klor-Con M) Processed by: Pharmacy Medications reviewed in ED?: No Medication History completed: Yes Patient Interview: Completed Secondary Source(s): Caregiver and Insurance records [facility] Statement: [employer] Rx insurance records on hand and RN interview. As the person ultimately responsible for medication therapy, providers are able to order a medication from an existing home medication list in [facility] via the "Reconcile Routine" prior to Confirmation of that medication by network support engineer. Such practice is discouraged except when the physician, in their clinical judgment, deems that a medical need exists for a medication without regard to previous use.
--- NOTE | 2024-06-08 16:03 | Discharge Summary ---
Discharge Summary Admit Date: 06/07/24 Discharge Date: 06/08/24 Discharging Provider: Layla Anders MD Primary Care Provider: CHIDI Hays Code Status: Attempt Resuscitation HPI History of Present Illness: Keiko is a tired appearing female sitting up in bed. She presents with a chief complaint of shortness of breath. She reports the shortness of breath started yesterday morning 06/06/2024 and was first intermittent but gradually worsened over the course of the day. She describes the sensation as a heaviness pressing down on both shoulders, tightness, and feeling of fear and air hunger. She denies any chest pain, pleuritic pain, squeezing, or palpitations. She reports leaning forward with her hands on her knees was helpful, while sitting upright made it worse. She was taken to the ER in an ambulance after alerting her neighbor that she was not feeling well. She still feels some shortness of breath and air hunger at present, but it is not as bad as it was before. She smoked for 30 years but quit "against her will" in March. She now uses a nicotine vape every morning and evening. She denies any marijuana use or recreational or prescription drug abuse. She reports she has a history of CKD Stage IV, CHF, atrial fibrillation, left bundle branch block, glaucoma, and hyperlipidemia. 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 She spent time in a rehabilitation facility and only returned home in the last week. She was set up with home health and had a caregiver scheduled to start with her on Sunday. She reports significant weakness in her left arm, and some weakness in her right arm and leg from her previous strokes. She also reports significant visual disturbances since her recent stroke. She sees "sparkle benavides" in the periphery of her vision, or "blades of grass". She states her vision is very blurry since the recent stroke and that she can no longer recognize words when she reads them. [facility] <Inna Isaacs - Last Filed: 06/07/24 18:10> Medical History Medical History (Updated 06/08/24 @ 10:50 by Inna Isaacs) Hyperlipidemia Nausea Most days since stroke 03/2024, alleviated with Zofran Community acquired pneumonia some time in 2023, was hospitalized and went into septic shock Moderate pulmonary hypertension Moderate mitral stenosis Mild aortic stenosis History of transesophageal echocardiography (CHACHO): 07/2021 and 09/2021 with Arnold Magallon MD (for ablation eval) STEMI (ST elevation myocardial infarction) put in PMH for 03/2023 admit for chf but there is no record of year or a cath done. She is followed by [facility]. Patient denies hx of STEMI CHF (congestive heart failure) Nonischemic cardiomyopathy. echo 06/2020 EF 54%, mild to mod and AR and MR. echo 02/14/23 w EF 50-55%, nml byrd. LAE mild. AV calcified mild 2.7 m/s. Mean 17 mmhg. Valve area 1.1cm2. Mild to mod AR. Mild MS w mean 4.5. Mod MR. mod pulm HTN. PASP 50 mmHg. admit 04/06/23 for sob 2 days after Watchman. Treated as mild fluid overload w CPAP and lasix, and felt cause more mucous plugging. Metoprolol stopped for bradycardia and continued amiodarone.Presence of Watchman left atrial appendage closure device 04/04/23Reflex sympathetic dystrophy, unspecified LBBB (left bundle branch block) Glaucoma Epiretinal membrane L eye, green blades of outer periphery of vison Tobacco abuse 0.3 ppd starting 1971. down to 0.25 ppd. Stopped 03/2024 Vertigo History of recurrent UTI (urinary tract infection) Osteoarthritis Mixed anxiety and depressive disorder Stroke from afib. R sided deficits then. s/p watchman~2022, on amiodarone, then ablation 04/04/23. 03/2024 another CVA put back on eliquis for hemorrhaghic or embolic CVA. Was discharged to SNF in [place] and was there until Mid April and then sent home. Atrial fibrillation ablation 04/04/2023. metoprolol stopped due to bradycardia with 04/06/2023 admit for pna Iron deficiency anemia Noted 11/2019. Hgb 11.4. EGD 05/17 with transfusion. Vascular disease: carotid stenosis with L CEA Hypertension CKD (chronic kidney disease) stage 4, GFR 15-29 ml/min. sees Otto Orlando MD [facility]. Has proteinuria. HCTZ stopped and started on jardiane/empaglifozin instead 02/29/24. Limit water to 2 L a day. CONSULTS | PROCEDURES Procedures: chest x-ray has mild increased right basilar opacity that could represent dependent change versus developing pneumonia. Chest thorax CT angiogram does not have filling defects accounting for pulmonary emboli. No evidence of aortic syndrome or aortic aneurysm. Trace bilateral pleural effusions with mild overlying atelectasis. No pneumothorax. A left atrial appendage solution device is seen. Heart size is normal. No pericardial effusion. Blood cultures from June 06 are negative after 1 day HOSPITAL COURSE Hospital Course: In reviewing her past medical records at length, I am finding that this patient is a tobacco abuser of longstanding duration. She managed to stop smoking 2 months ago. She also has significant cardiac history. In interpreting the data and the echo reports this patient has mitral stenosis, aortic stenosis, pulmonary hypertension, and a mildly reduced ejection fraction. In reviewing her medication list she is on Eliquis because she recently had another stroke last month or 2. Theoretically she should not have to be on Eliquis because she has a Watchman procedure. But the stroke caused Eliquis to be resumed. She is not on any inhaler for COPD. She is on metoprolol for rate control. That has been stopped and started depending on her bradycardia. Her crtts does not feel that she has heart failure with reduced ejection fraction in interpreting the notes from [facility]. Overall I think she has mild congestive heart failure with mild COPD causing her current acute exacerbation. She was started on steroids, nebulizers and IV lasix. She did very well and recovered much faster than I thought she was going to. I had admitted her to inpatient with the 2 midnight rule. However, the patient recovered much more quickly than I thought, and was stable for discharge today. I did an oxygen desat test and she does not require any oxygen at all. Lungs still have occasional prolonged and exhalation and diminished at the bases but no respiratory distress. A-fib is controlled. I am asking her to follow-up with her primary care provider to make sure that the provider knows that she has been started on new medication. In addition to Lasix and potassium I have started Atrovent to help with the COPD component. I also would think that a referral for pulmonary function studies to quantify her COPD would be helpful. She is discharged in stable condition. Greater than 30 minutes was spent coordinating discharge ALLERGIES Allergies Allergy/AdvReac Type Severity Reaction Status Date / Time atropine Allergy Unknown Verified 06/06/24 18:29 clindamycin Allergy Unknown Verified 06/06/24 18:29 codeine Allergy Rash Verified 06/06/24 18:29 diphenoxylate Allergy Unknown Verified 06/06/24 18:29 nitrofurantoin Allergy Unknown Verified 06/06/24 18:29 Penicillins Allergy Unknown Verified 06/06/24 18:29 propoxyphene Allergy Unknown Verified 06/06/24 18:29 Sulfa (Sulfonamide Allergy Unknown Verified 06/06/24 18:29 Antibiotics) vancomycin Allergy Unknown Verified 06/06/24 18:29 venom-wasp AdvReac Rash Unverified 06/07/24 14:40 mushrooms Allergy Unknown Uncoded 06/06/24 18:29 MEDICATIONS Ambulatory Orders Medication Instructions Recorded Confirmed metoprolol succinate 50 mg 50 mg PO DAILY 05/03/15 06/07/24 tablet,extended release 24 hr cholecalciferol (vitamin D3) 25 1,000 unit PO DAILY 10/06/21 06/07/24 mcg (1,000 unit) capsule apixaban 2.5 mg tablet (Eliquis) 2.5 mg PO BID 06/07/24 06/07/24 levetiracetam 500 mg tablet 500 mg PO BID 06/07/24 06/07/24 (Keppra) loratadine 10 mg tablet 10 mg PO DAILY 06/07/24 06/07/24 (Allerclear) meclizine 25 mg tablet 25 mg PO TID PRN dizziness or 06/07/24 06/07/24 vertigo rosuvastatin 10 mg tablet 10 mg PO DAILY 06/07/24 06/07/24 sertraline 50 mg tablet 50 mg PO DAILY 06/07/24 06/07/24 trazodone 50 mg tablet 25 mg PO HS 06/07/24 06/07/24 furosemide 20 mg tablet (Lasix) 20 mg PO DAILY #30 tabs 06/08/24 ipratropium 20 mcg-albuterol 100 1 puff inhalation QID #4 grams 06/08/24 mcg/actuation mist for inhalation (Combivent Respimat) potassium chloride 10 mEq 10 meq PO DAILY #30 tabs 06/08/24 tablet,extended release(part/cryst) (Klor-Con M) PHYSICAL EXAM AT DISCHARGE General Appearance: positive No acute distress, Alert and Other (Slightly nasal, congested tone of voice. Thin female at 5 foot 3 inches tall, 51 kg.) Eyes Bilateral: positive PERRL and EOMI ENT: positive No signs of dehydration Neck: positive No JVD; negative Stiff neck Respiratory: positive No respiratory distress and Other (Prolonged and exhalation phase. Rhonchi right upper lobe disappear with a cough) Cardiovascular: positive Regular rate & rhythm and Systolic murmur (This radiate to the carotids. Very slight right ventricular lift) Peripheral Pulses: positive 2+ Abdomen: positive Non-tender, No organomegaly and Nml bowel sounds Extremities: positive Full ROM; negative Pedal edema Neurologic/Psychiatric: positive Oriented x3 and CN's nml (2-12) LABS 06/08/24 05:32 06/08/24 05:32 SEPSIS Current Stage of Sepsis: Resolved (resolved with IV antibiotics, IV diuretics, and O2 administration ) Possible source of Sepsis: Unknown Sepsis Criteria: Recorded Temperature greater than 38.3C or Less than 36C, Recorded Respiratory Rate greater than 20 and WBC count greater than 12,000 or less than 4000 Discharge Plan Discharge Patient Disposition: Home, Self Care Condition: Fair Medically Cleared Date:: 06/08/24 Prescriptions: New Combivent Respimat 20-100 mcg/actuation mist 1 puff inhalation QID Qty: 4 2RF Rx Instructions: space evenly during waking hours furosemide [Lasix] 20 mg tablet 20 mg PO DAILY Qty: 30 2RF potassium chloride [Klor-Con M10] 10 mEq tablet,ER particles/crystals 10 meq PO DAILY Qty: 30 2RF Continued metoprolol succinate 50 MG tablet extended release 24 hr 50 mg PO DAILY Patient Comments: BID cholecalciferol (vitamin D3) 25 MCG capsule 1,000 unit PO DAILY Eliquis 2.5 mg tablet 2.5 mg PO BID levetiracetam [Keppra] 500 mg tablet 500 mg PO BID sertraline 50 mg tablet 50 mg PO DAILY loratadine [Allerclear] 10 mg tablet 10 mg PO DAILY rosuvastatin 10 mg tablet 10 mg PO DAILY meclizine 25 mg tablet 25 mg PO TID PRN (Reason: dizziness or vertigo) trazodone 50 mg tablet 25 mg PO HS Activity Restrictions: Activity as Tolerated Diet: Regular Health Concerns: Unfortunately you have a very complex medical history. You are a smoker with probable emphysema. You have not had emphysema as a diagnosis before but you do have problems with shortness of breath. We think that you have shortness of breath because of 2 problems. 1 is emphysema from smoking. And the other is because of your heart. You have congestive heart failure from valvular heart disease, high blood pressure in your lungs called pulmonary hypertension, and the left side of your heart does not pump strongly as it could. When you combined both lung and heart disease you will have shortness of breath with exertion. And on a bad day shortness of breath at rest. You presented to our emergency room with shortness of breath for 2 days. No fever, no chills. However in the emergency room you had a fever, a very low oxygen level, and a pulse that was very rapid. We did not find pneumonia. But we treated you as a bronchitis. We slow down your heart rate. And we offloaded fluid in your lungs and body by making you urinate with Lasix. And that we combine treatment for both emphysema and congestive heart failure to make you better. This morning you feel better. You no longer need oxygen. You do feel weak and tired but you are able to eat. Go to the bathroom. And you are alert and oriented. Instructions for discharge: 1. Please see your primary care provider in follow-up. I am starting 3 new medications and your primary care provider needs to know about it and to also weigh you, and check your blood work. 2. I am sending you home on a new inhaler to help with COPD with asthma. It is called combivent. I would recommend taking Combivent at least 3 times a day. Once in the morning, once in the middle of the day, and once at night. I would also recommend that your primary care provider order pulmonary function studies on you. That will help quantify if your disease is mild, moderate, or severe.Please, please, please continue to stop smoking. I would also recommend you stop vaping. Vaping is no better than smoking with regards to making your lungs irritated. 3. I am also going to send you home on a new water pill for congestive heart failure called Lasix. It will be a low dose. Take it first thing in the morning. Because Lasix makes you urinate potassium through your kidneys, sometimes potassium can get low in the blood. So I will be prescribing a potassium pill to take every day as well. 4. Try and keep a copy of your past medical history with you at home. The disease you have, the hospitalizations, and the medicines you take. Because you get all of your care at [facility], we do not have access to those medical records and it sometimes makes it difficult to make decisions on people. We were able to call [facility] and get some records to help us understand what your problems were. Print Language: Lebanese Patient Instructions: Albuterol Ipratropium inhalation aerosol, COPD, Heart Valve Probs, Heart Valve Stenosis, Mitral Stenosis, Hypertension Pulmonary, Aortic Stenosis Ch Stand Alone Forms: PCP List Follow-up Care: Roseann Davies ARNP [Primary Care Provider] -
[2024-06-08 16:10] VITALS: BP 144/71; TEMP 98.1; O2SAT 98
--- NOTE | 2024-06-08 17:14 | PT Plan of Care ---
Medical/Surgical Past History Past History Medical History (Updated 06/08/24 @ 10:50 by Inna Isaacs) Hyperlipidemia Nausea Most days since stroke 03/2024, alleviated with Zofran Community acquired pneumonia some time in 2023, was hospitalized and went into septic shock Moderate pulmonary hypertension Moderate mitral stenosis Mild aortic stenosis History of transesophageal echocardiography (CHACHO) 07/2021 and 09/2021 with Arnold Magallon MD (for ablation eval) STEMI (ST elevation myocardial infarction) put in H for 03/2023 admit for chf but there is no record of year or a cath done. She is followed by [facility]. Patient denies hx of STEMI CHF (congestive heart failure) Nonischemic cardiomyopathy. echo 06/2020 EF 54%, mild to mod and AR and MR. echo 02/14/23 w EF 50-55%, nml byrd. LAE mild. AV calcified mild 2.7 m/s. Mean 17 mmhg. Valve area 1.1cm2. Mild to mod AR. Mild MS w mean 4.5. Mod MR. mod pulm HTN. PASP 50 mmHg. admit 04/06/23 for sob 2 days after Watchman. Treated as mild fluid overload w CPAP and lasix, and felt cause more mucous plugging. Metoprolol stopped for bradycardia and continued amiodarone. Presence of Watchman left atrial appendage closure device 04/04/23 Reflex sympathetic dystrophy, unspecified LBBB (left bundle branch block) Glaucoma Epiretinal membrane L eye, green blades of outer periphery of vison Tobacco abuse 0.3 ppd starting 1971. down to 0.25 ppd. Stopped 03/2024 Vertigo History of recurrent UTI (urinary tract infection) Osteoarthritis Mixed anxiety and depressive disorder Stroke from afib. R sided deficits then. s/p watchman~2022, on amiodarone, then ablation 04/04/23. 03/2024 another CVA put back on eliquis for hemorrhaghic or embolic CVA Atrial fibrillation ablation 04/04/2023. metoprolol stopped due to bradycardia with 04/06/2023 admit for pna Iron deficiency anemia Noted 11/2019. Hgb 11.4. EGD 05/17 with transfusion. Vascular disease carotid stenosis with L CEA Hypertension CKD (chronic kidney disease) stage 4, GFR 15-29 ml/min see Otto Orlando MD [facility]. Has proteinuria. HCTZ sto pped and started on jardiane/empaglifozin instead 02/29/24. Limit water to 2 L a day. Surgical History (Updated 06/07/24 @ 14:49 by Layla Anders MD) History of esophagogastroduodenoscopy (EGD) with biopsy 05/10/21 by Adrianna Kirby DO History of hysterectomy uterus and cervix removed Status post de Quervain release surgery History of carpal tunnel surgery H/O cataract removal with insertion of prosthetic lens R & L eye 10/2021 H/O carotid endarterectomy
== END 2024-06-08 16:46 | disposition home or self-care (01) | DRG 871 ==
LOC: ED 18:16 → MS2 06-07 14:06
PROVIDERS: ADMIT Specialist; ATTEND Specialist